=== PATIENT | male | born 1935 | race Caucasian/White ===

== ENCOUNTER 2020-03-30 11:53 | Inpatient (IN) | payer OTHER ==
[~2020-03-30] VITALS: Ht 170.2 cm; Wt 77.1 kg
[2020-03-30 12:35] LABS: BASOPHILS % (AUTO) 0.4 % (0.0-2.0); HEMATOCRIT 39 % (39-51); HEMOGLOBIN 13.6 g/dL (13.5-17.5); LYMPHOCYTES # (AUTO) 0.6 /CMM (0.8-4.8); LYMPHOCYTES % (AUTO) 10.7 % (20.0-44.0); MEAN CORPUSCULAR HGB CONC 35 g/dl (31.0-36.0); MEAN CORPUSCULAR VOLUME 92 fL (80-96); MONOCYTES # (AUTO) 0.2 /CMM (0.1-1.30); NEUTROPHILS % (AUTO) 84.9 % (43.0-81.0); PLATELET COUNT (AUTO) 211 /CMM (150-450); RED BLOOD CELL COUNT(AUTO) 4.22 MIL/uL (4.5-6.0); WHITE BLOOD COUNT (AUTO) 5.9 K/uL (4.3-11.0)
--- NOTE | 2020-03-30 12:35 | NUR ---
DEANNA FROM HOME TO ER BED 6. AWAKE AND ALERT, ABLE TO FOLLOW COMMAND. NOT IN RESP DISTRESS BUT SATTING AT 89% DESPITE HAVING HIM ON @ 10LPM VIA SIMPLE FACE MASK. BROUGHT IN FOR FEVER. ORAL TEMP NOTED @ 98.6. PT IS PALCED ON NON REBREATHER MASK @ 15LPM, SATTING AT 97%. MD WAS AT THE BEDSIDE FOR EVAL. ORDERS RECEIVED, NOTED AND CARRIED OUT. IV LINE ESTABLISHED ON L AC 18G, BLOOD DRAWN AND GIVEN TO TUBE AND MANIFOLD BUILDER AT BEDSIDE.
--- NOTE | 2020-03-30 12:41 | NUR ---
xray at bedside
[2020-03-30] MEDS ORDERED: DEXAMETHASONE SOD PHOSPHATE 10 MG/ML VIAL ONE (12:46)
[2020-03-30] MEDS ORDERED: DEXAMETHASONE SOD PHOSPHATE 10 MG/ML VIAL IV ONE (13:00)
[2020-03-30 13:01] LABS: ALANINE AMINOTRANSFERASE 58 U/L (12-78); ALBUMIN 2.6 g/dL (3.4-5.0); ALKALINE PHOSPHATASE 55 U/L (46-116); ASPARTATE AMINOTRANSFERASE 88 U/L (15-37); BILIRUBIN,DIRECT 0.3 mg/dL (0.0-0.2); BILIRUBIN,TOTAL 0.7 mg/dL (0.2-1.0); CALCIUM, SERUM 8.6 mg/dL (8.5-10.1); CARBON DIOXIDE 27 mmol/L (21-32); CHLORIDE 99 mmol/L (98-107); CREATININE 1.2 mg/dL (0.6-1.3); GLUCOSE 172 mg/dL (74-106); POTASSIUM 4.1 mmol/L (3.5-5.1); SODIUM SERUM 136 mmol/L (136-145); TOTAL PROTEIN, SERUM 7.2 g/dL (6.4-8.2)
[2020-03-30 13:07] LABS: UREA NITROGEN, BLOOD 26 mg/dL (7-18)
--- NOTE | 2020-03-30 13:15 | NUR ---
MOVE SHEET SUBMITTED AND CALLED FOR TELE
[2020-03-30] MEDS ORDERED: METF-442 PO (14:19)
[2020-03-30] MEDS ORDERED: TAMS-12 PO (14:19)
[2020-03-30] MEDS ORDERED: GLIP2.5T16 PO (14:19)
--- NOTE | 2020-03-30 14:19 | NUR ---
[facility] [employer] [facility] [employer] - [phone]
--- NOTE | 2020-03-30 14:20 | NUR ---
DAUGHTER UPDATED REGARDING FATHER.
[2020-03-30] MEDS ORDERED: ONDANSETRON HCL/PF 4 MG/2 ML VIAL IVP PRN (14:30)
[2020-03-30] MEDS ORDERED: MAG HYDROX/AL HYDROX/SIMETH 30 ML UDC PO PRN (14:30)
[2020-03-30] MEDS ORDERED: AZITHROMYCIN 500 MG in IV D5W 250 ML IV SCH (14:30)
[2020-03-30] MEDS ORDERED: Z GUARD REMEDY 2 OZ OINT TP PRN (14:30)
[2020-03-30] MEDS ORDERED: MAGNESIUM HYDROXIDE 30 ML UDC PO PRN (14:30)
--- NOTE | 2020-03-30 14:33 | NUR ---
PHARMACY CALLED FOR INPATIENT MEDS
[2020-03-30] MEDS ORDERED: ASCO-352 PO (15:21)
[2020-03-30] MEDS ORDERED: ALBU8.5H8 IH (15:21)
[2020-03-30] MEDS ORDERED: PROC10TA13 PO (15:21)
[2020-03-30] MEDS ORDERED: TRAM50TA2 PO (15:21)
[2020-03-30] MEDS ORDERED: IBUP-2715 PO (15:21)
[2020-03-30] MEDS ORDERED: DICL100G16 TP (15:21)
[2020-03-30] MEDS ORDERED: MAGN500C16 PO (15:21)
[2020-03-30] MEDS ORDERED: AMLO2.5T4 PO (15:21)
[2020-03-30] MEDS ORDERED: ACET-868 PO (15:21)
[2020-03-30] MEDS ORDERED: ZINC50TA65 PO (15:21)
[2020-03-30] MEDS ORDERED: ESCI5TAB PO (15:21)
[2020-03-30] MEDS ORDERED: POLY15DR40 EACHEYE (15:21)
[2020-03-30] MEDS ORDERED: HYDR-4384 PO (15:21)
[2020-03-30] MEDS ORDERED: CHOL100040 PO (15:21)
[2020-03-30] MEDS ORDERED: DOCU-141 PO (15:21)
[2020-03-30] MEDS: CEFTRIAXONE 1 G in IV D5W 50 ML IV SCH (17:30)
[2020-03-30] MEDS ORDERED: REMDESIVIR (CHARGED) 200 MG, *LOADING DOSE 1 EA in IV NS 0.9% 210 ML IV ONE (18:00)
[2020-03-30] MEDS: ZITHROMAX 500 MG/250 ML D5W IV SCH ×2 (18:00)
[2020-03-30] MEDS: ENOXAPARIN SODIUM 40 MG/0.4 ML DISP.SYRIN SQ SCH (20:01)
--- NOTE | 2020-03-30 21:08 | NUR ---
LAB CALLED REGARDING INVESTIGATIVE PAPERWORK FOR CONVALESCENT PLASMA TRANSFUSION.
--- NOTE | 2020-03-30 22:23 | NUR ---
PT IN BED SLEEPING. NAD NOTED.
--- NOTE | 2020-03-30 22:34 | NUR ---
PT ENDORSED TO GENE PEREZ
--- NOTE | 2020-03-30 23:40 | NUR ---
TRANSFUSION CONSENT FOR CONVALESCENT PLASMA WAS OBTAINED FROM THE DAUGHTER SENIA OVER THE PHONE AND PT PERSONALLY WHO SIGNED THE CONSENT.
--- NOTE | 2020-03-31 00:10 | NUR ---
CONVALESCENT PLASMA TRANSFUSION STARTED W/ TWO RNs VERIFICATIONS. PT REMAINED ON A MONITOR, W/ ONGOING SUPPLEMENTAL O2 AT 10LPM VIA SYMPLE MASK. WILL CONT TO MONITOR ,
--- NOTE | 2020-03-31 00:39 | NUR ---
PLASMA TRANSUSION COMPLETED W. NO ADVERSE REACTION. PT W/ NO C/O SOB, NO CP, NO FLANK PAIN . VSS. WILL CONT TO MONITOR ,
[2020-03-31 04:34] LABS: BASOPHILS % (AUTO) 0.2 % (0.0-2.0); HEMATOCRIT 40 % (39-51); HEMOGLOBIN 13.4 g/dL (13.5-17.5); LYMPHOCYTES # (AUTO) 0.5 /CMM (0.8-4.8); LYMPHOCYTES % (AUTO) 10.5 % (20.0-44.0); MEAN CORPUSCULAR HGB CONC 34 g/dl (31.0-36.0); MEAN CORPUSCULAR VOLUME 94 fL (80-96); MONOCYTES # (AUTO) 0.3 /CMM (0.1-1.30); MONOCYTES % (AUTO) 6.7 % (2.0-12.0); NEUTROPHILS # (AUTO) 4.1 /CMM (1.8-8.9); NEUTROPHILS % (AUTO) 82.6 % (43.0-81.0); PLATELET COUNT (AUTO) 242 /CMM (150-450); RED BLOOD CELL COUNT(AUTO) 4.23 MIL/uL (4.5-6.0)
[2020-03-31 05:05] LABS: CALCIUM, SERUM 9.1 mg/dL (8.5-10.1); CREATININE 1.1 mg/dL (0.6-1.3); POTASSIUM 4.2 mmol/L (3.5-5.1)
[2020-03-31 05:11] LABS: ALBUMIN 2.5 g/dL (3.4-5.0); BILIRUBIN,TOTAL 0.6 mg/dL (0.2-1.0); MAGNESIUM 2.3 mg/dL (1.8-2.4); PHOSPHORUS 3.2 mg/dL (2.5-4.9); TOTAL PROTEIN, SERUM 7.2 g/dL (6.4-8.2)
--- NOTE | 2020-03-31 05:28 | NUR ---
PT APEARED SORT OF BREATH AND ALSO REQUESTING TO WALK TO THE BATHROOM. PT CURRERNTLY ON 10L OD O2 VIA SIMPLE MASK. PT WAS PLACED ON A NON REBREATHER MASK AT 15LPM. WAS ASSISTED W/ A URINAL AND ASKED PT TO LAY ON HIS SIDE. REMAINED WITH THE PT WHILE ON A MONITOR.
--- NOTE | 2020-03-31 05:56 | NUR ---
RESTING IN BED . BREATHING EVENLY. NO SOB NOTED. PT TOLERATED NON REBREATHER MASK WITH 15LPM OF O2 WELL. SATTING 99%. WILL CONT TO MONITOR ,
--- NOTE | 2020-03-31 08:01 | NUR ---
assume patient care. resting in bed. all needs attended. provided w/ meal tray.
[2020-03-31] MEDS ORDERED: DEXAMETHASONE SOD PHOSPHATE 10 MG/ML VIAL IJ SCH (09:00)
--- NOTE | 2020-03-31 10:05 | NUR ---
PT NOTED LOW O2 SAT. O2 NON REBREATHER TRAKEN OFF BY PATIENT. WAS ADVISED TO KEEP NON REBREATHER MASK ON. STABLE VITALS.
[2020-03-31] MEDS: DEXAMETHASONE SOD PHOSPHATE 10 MG/ML VIAL IV SCH (10:30)
[2020-03-31] MEDS: CEFTRIAXONE 1 G in IV D5W 50 ML IV SCH (16:34)
[2020-03-31] MEDS: ZITHROMAX 500 MG/250 ML D5W IV SCH ×2 (17:10)
--- NOTE | 2020-03-31 18:02 | NUR ---
T PULLED OUT IV. NEW ONE STARTED. LFA 18G.
[2020-03-31] MEDS: REMDESIVIR (CHARGED) 100 MG in IV NS 0.9% 230 ML IV SCH (18:10)
--- NOTE | 2020-03-31 18:50 | NUR ---
Eladia baca in EDM - 03/31/20 at 1901 by INES PT PULLED OUT IV. NEW ONE STARTED. LFA 18G.
[2020-03-31] MEDS: ENOXAPARIN SODIUM 40 MG/0.4 ML DISP.SYRIN SQ SCH (19:12)
--- NOTE | 2020-03-31 19:30 | NUR ---
rec'd pt in bed awake and alert. on ongoing o2 at 15 lpm via non rebreather mask. satting at 90-93% . no s/s of pain or discomfort noted. pt remained on heart monitor,
--- NOTE | 2020-03-31 19:34 | NUR ---
REPORT GIVEN TO CHRIS MILLS FOR EDWIN.
--- NOTE | 2020-04-01 | NUR ---
pt noted w/ low o2 sat. pt ws advised to keep the mask in place and remained on ongoing monitor
[2020-04-01 05:27] LABS: ALBUMIN 2.7 g/dL (3.4-5.0); BILIRUBIN,DIRECT 0.3 mg/dL (0.0-0.2); BILIRUBIN,TOTAL 0.7 mg/dL (0.2-1.0); CREATININE 1.1 mg/dL (0.6-1.3); POTASSIUM 4.1 mmol/L (3.5-5.1); TOTAL PROTEIN, SERUM 7.7 g/dL (6.4-8.2)
[2020-04-01 08:10] LABS: PTH, INTACT 30 pg/mL (15-65)
[2020-04-01] MEDS ORDERED: HYDROCODONE/APAP 5/325MG TABLET ONE ×2 (08:10→15:16)
[2020-04-01] MEDS: HYDROCODONE/APAP 5/325MG TABLET PO PRN ×2 (08:15→15:18)
[2020-04-01] MEDS: DEXAMETHASONE SOD PHOSPHATE 10 MG/ML VIAL IV SCH (08:21)
--- NOTE | 2020-04-01 08:30 | NUR ---
provided pt with bfast ate 70%
--- NOTE | 2020-04-01 09:17 | NUR ---
rt by bedside, placed pt on hu flow o2 60L/100% satting at 93%
--- NOTE | 2020-04-01 12:34 | NUR ---
provided pt with lunch ate 70%
[2020-04-01] MEDS: CEFTRIAXONE 1 G in IV D5W 50 ML IV SCH (15:03)
[2020-04-01] MEDS: ZITHROMAX 500 MG/250 ML D5W IV SCH ×2 (16:00)
[2020-04-01 16:07] LABS: *SPE A/G RATIO 0.7 (0.7-1.7); *SPE ALBUMIN 2.5 g/dL (2.9-4.4); *SPE ALPHA-1-GLOBULIN 0.5 g/dL (0.0-0.4); *SPE ALPHA-2-GLOBULIN 1.2 g/dL (0.4-1.0); *SPE BETA GLOBULIN 1.1 g/dL (0.7-1.3); *SPE GLOBULIN, TOTAL 3.6 g/dL (2.2-3.9); *SPE M-SPIKE Not Observed g/dL (Not Observed); *SPEGAMMA GLOBULIN 0.8 g/dL (0.4-1.8)
--- NOTE | 2020-04-01 18:10 | NUR ---
CALLED PHARMACY MULTIPLE TIMES FOR THE MEDICATIONS. STILL HAVEN'T DELIVERED.
[2020-04-01] MEDS: ENOXAPARIN SODIUM 40 MG/0.4 ML DISP.SYRIN SQ SCH (18:30)
[2020-04-01] MEDS: REMDESIVIR (CHARGED) 100 MG in IV NS 0.9% 230 ML IV SCH (18:30)
--- NOTE | 2020-04-01 19:30 | NUR ---
REC'D PT IN BED AWAKE , STASNDING AT BED SIDE. HAS REMOVED HIS SUPPLEMENTAL O2 . SATTING ON 70s. PT WAS ASSISTED BACK IN BED AND PLACED PT BACK ON HIGH FLOW O2 AND NON REBREATHER MASK. PT WAS ADVISED TO STAY IN BED AND KEEP THE O2 SUPLEMNTS DEVISES IN PLACE. PT WAS PLACED BACK ON FULL MONITOR. AND STAYED WITH PT. O2 SATURATION GRADULLY INCREASED TO 90s. WILL CONT TO MONITOR.
--- NOTE | 2020-04-01 20:30 | NUR ---
FOUND PT SATTING ON 76% ON MONTIOR, CHECKED ON PT. NOTED PT REMOVED HIS MASK AND HIGH FLOW O2. PT WAS ADVISED TO KEEP THE SUPPLEMENTAL O2 IN PLACE. WILL CONT TO MONITOR ,
--- NOTE | 2020-04-01 23:24 | NUR ---
found pt w/ laying in bed and removed his o2 supplements. pt was placed back on hi flow o2 and non rebreather mask and asked pt to please keep them in place to prevent desaturation. stayed with the pt to ensure o2 saturation wnl.
--- NOTE | 2020-04-02 01:20 | NUR ---
PT IS REFUSING HIGH FLOW O2 AND NON REBREATHER MASK . SPOKE TO THE PT AND RISK VS THE BENEFITS EXPLAINED TO THE PT AND CONVINCED PT TO HAVE THE NON REBREATHER MASK IN PLACE. PT REMAINED ON CLOSE MONITOR,
[2020-04-02 04:34] LABS: BASOPHILS % (AUTO) 0.4 % (0.0-2.0); HEMATOCRIT 40 % (39-51); HEMOGLOBIN 13.5 g/dL (13.5-17.5); LYMPHOCYTES # (AUTO) 0.6 /CMM (0.8-4.8); LYMPHOCYTES % (AUTO) 6.7 % (20.0-44.0); MEAN CORPUSCULAR HGB CONC 34 g/dl (31.0-36.0); MEAN CORPUSCULAR VOLUME 94 fL (80-96); MONOCYTES # (AUTO) 0.4 /CMM (0.1-1.30); MONOCYTES % (AUTO) 4.7 % (2.0-12.0); NEUTROPHILS # (AUTO) 8.3 /CMM (1.8-8.9); NEUTROPHILS % (AUTO) 88.2 % (43.0-81.0); PLATELET COUNT (AUTO) 295 /CMM (150-450); RED BLOOD CELL COUNT(AUTO) 4.25 MIL/uL (4.5-6.0); WHITE BLOOD COUNT (AUTO) 9.5 K/uL (4.3-11.0)
[2020-04-02 04:49] LABS: ALBUMIN 2.6 g/dL (3.4-5.0); BILIRUBIN,DIRECT 0.3 mg/dL (0.0-0.2); BILIRUBIN,TOTAL 0.8 mg/dL (0.2-1.0); CALCIUM, SERUM 9.2 mg/dL (8.5-10.1); CREATININE 1.2 mg/dL (0.6-1.3); MAGNESIUM 2.3 mg/dL (1.8-2.4); PHOSPHORUS 3.6 mg/dL (2.5-4.9); POTASSIUM 4.6 mmol/L (3.5-5.1); TOTAL PROTEIN, SERUM 7.2 g/dL (6.4-8.2)
[2020-04-02] MEDS: ENOXAPARIN SODIUM 40 MG/0.4 ML DISP.SYRIN SQ SCH ×2 (06:18→18:22)
[2020-04-02] MEDS ORDERED: ENOXAPARIN SODIUM 40 MG/0.4 ML DISP.SYRIN SQ ONE (06:18)
[2020-04-02] MEDS: DEXAMETHASONE SOD PHOSPHATE 10 MG/ML VIAL IV SCH (10:00)
[2020-04-02] MEDS: CEFTRIAXONE 1 G in IV D5W 50 ML IV SCH (16:43)
--- NOTE | 2020-04-02 16:59 | NUR ---
GOING TO 201
[2020-04-02] MEDS: ZITHROMAX 500 MG/250 ML D5W IV SCH ×2 (17:12)
--- NOTE | 2020-04-02 17:56 | NUR ---
PT TRANSPORTED TO UNIT ON [facility] WITH EMT AND RN AT BEDSIDE WITH ACLS PROTOCOL. NAD NOTED DURING TRANSPORT. PT AMBULATED FROM GURNEY TO BED WITH MIN ASSIST.
--- NOTE | 2020-04-02 18:00 | NUR ---
FACILITY COORDINATOR NOTES RECEIVED PT FROM E.R. STAFF VIA JAMESON, PT IS AWAKE, ALERT, VERBALLY RESPONSIVE, NO COMPLAINT OF PAIN, NO SOB NOTED, ASSISTED TO BED, MADE COMFORTABLE, ON HIGH FLOW 02 VIA N/C, INSTRUCTED PT NOT TO REMOVE HIS NASAL CANULA, VITAL SIGNS TAKEN AND RECORDED, KEPT WARM AND COMFORTABLE IN BED.
[2020-04-02 18:11] VITALS: BP 150/110
[2020-04-02] MEDS: REMDESIVIR (CHARGED) 100 MG in IV NS 0.9% 230 ML IV SCH (18:29)
--- NOTE | 2020-04-02 19:35 | NUR ---
SHEET METAL SUPERINTENDENT NOTES RECEIVED REPORT FROM GENE SALDANA; PATIENT NOTED ON NON-REBREATHER MASK AND HIGHFLOW; WILL CONT PLAN OF CARE
[2020-04-02 20:00] VITALS: BP 112/69
--- NOTE | 2020-04-02 20:02 | NUR ---
IRON BENDER NOTES PATIENT REMOVING IV TUBING AND HIGH FLOW/NON-REBREATHER CONSTANTLY; PATIENT RE-ORIENTED SEVERAL TIMES THROUGHOUT DAY PER DAY SHIFT; PATIENT FOUND IN ROOM WITH NO O2 SUPPLEMENTATION, PATIENT REMOVING TUBING; MADE DISABILITY COUNSELOR RAF CALVILLO, FILM PRODUCER AWARE; PER , GAUTAM FOR RESTRAINTS; WILL APPLY RESTRAINTS PER MD ORDER; WILL CONT PLAN OF CARE
[2020-04-02] MEDS ORDERED: LORAZEPAM INJ 2 MG/ML VIAL IV PRN (22:30)
[2020-04-03] VITALS (12 sets, daily range): BP systolic 106–183; BP diastolic 67–107
--- NOTE | 2020-04-03 | NUR ---
PATTERN PAINTER NOTES IV ACCESS OBTAINED, R WRIST #20, INTACT AND PATENT, FLUSHING WELL.
--- NOTE | 2020-04-03 01:37 | NUR ---
CARDIOVASCULAR SURGEON NOTES PER RT, PATIENT REPORTED TO BE SATTING 84-89% WITH O2 SUPPLEMENTATION WHILE LAYING SUPINE; PATIENT SATTING 90S WHEN SIDE LYING, PER RT; MD AWARE; WILL CONT PLAN OF CARE
--- NOTE | 2020-04-03 02:12 | NUR ---
FARM BUTCHER NOTES PATIENT VERY AGITATED; PATIENT STILL ABLE TO REMOVE TELE BOX; MD AWARE; WILL CONT PLAN OF CARE
[2020-04-03] MEDS: ENOXAPARIN SODIUM 40 MG/0.4 ML DISP.SYRIN SQ SCH ×2 (05:03→17:28)
--- NOTE | 2020-04-03 05:16 | NUR ---
DOLLY PUSHER NOTES PATIENT VERY AGITATED/ANXIOUS AND RESTLESS; MD MADE AWARE; PER MD, OKAY TO CHANGE ATIVAN ORDER FROM Q6 HOURS PRN TO [id number] PRN; ORDERS RECEIVED AND READ BACK; WILL ADMINISTER PER MD ORDER; WILL CONT PLAN OF CARE
[2020-04-03] MEDS: LORAZEPAM INJ 2 MG/ML VIAL IV PRN ×3 (05:26→19:50)
[2020-04-03 06:12] LABS: BASOPHILS % (AUTO) 0.1 % (0.0-2.0); HEMATOCRIT 44 % (39-51); HEMOGLOBIN 14.8 g/dL (13.5-17.5); LYMPHOCYTES # (AUTO) 0.9 /CMM (0.8-4.8); LYMPHOCYTES % (AUTO) 5.5 % (20.0-44.0); MEAN CORPUSCULAR HGB CONC 34 g/dl (31.0-36.0); MEAN CORPUSCULAR VOLUME 93 fL (80-96); MONOCYTES # (AUTO) 0.7 /CMM (0.1-1.30); NEUTROPHILS # (AUTO) 15.5 /CMM (1.8-8.9); NEUTROPHILS % (AUTO) 90.4 % (43.0-81.0); PLATELET COUNT (AUTO) 317 /CMM (150-450); RED BLOOD CELL COUNT(AUTO) 4.73 MIL/uL (4.5-6.0); WHITE BLOOD COUNT (AUTO) 17.1 K/uL (4.3-11.0)
[2020-04-03 06:29] LABS: ALANINE AMINOTRANSFERASE 65 U/L (12-78); ALBUMIN 2.9 g/dL (3.4-5.0); ALKALINE PHOSPHATASE 91 U/L (46-116); ASPARTATE AMINOTRANSFERASE 50 U/L (15-37); BILIRUBIN,DIRECT 0.4 mg/dL (0.0-0.2); BILIRUBIN,TOTAL 0.9 mg/dL (0.2-1.0); CALCIUM, SERUM 9.4 mg/dL (8.5-10.1); CARBON DIOXIDE 21 mmol/L (21-32); CHLORIDE 102 mmol/L (98-107); CREATININE 1.3 mg/dL (0.6-1.3); GLUCOSE 276 mg/dL (74-106); POTASSIUM 4.5 mmol/L (3.5-5.1); SODIUM SERUM 139 mmol/L (136-145); TOTAL PROTEIN, SERUM 7.7 g/dL (6.4-8.2); UREA NITROGEN, BLOOD 39 mg/dL (7-18)
--- NOTE | 2020-04-03 07:17 | NUR ---
NURSING SCHEDULER CLOSING NOTES PATIENT RESTING IN BED COMFORTABLY; A/OX1-2, CONFUSED AND AGITATED/ANXIOUS; PATIENT CURRENTLY TOLERATING HIGHFLOW 60LPM AND NON-REBREATHER, ON 100% FIO2; NO SOB NOTED; PATIENT DENIES PAIN; BILATERAL SOFT WRIST RESTRAINT APPLIED; NO EVIDENCE OF SKIN BREAKDOWN NOTED; TELE MONITOR READS SINUS RHYTHM; R WRIST #20 S/L INTACT AND PATENT; PATIENT SOMETIMES NON-COMPLIANT; MD AWARE; ISOLATION PRECAUTIONS MANTAINED; ALL NEEDS RENDERED; SAFETY PRECAUTIONS IMPLEMENTED; WILL ENDORSE EDWIN TO ONCOMING SHIFT
[2020-04-03 07:39] LABS: FERRITIN 2830 ng/mL (8-388)
--- NOTE | 2020-04-03 07:45 | NUR ---
TELE/RN OPENING NOTE THE PATIENT IS RECEIVED IN BED. THE PATIENT IS ALERT AND ORIENTED X1. ABLE TO FOLLOW SIMPLE COMMANDS. BILATERAL SOFT WRIST RESTRAINS ON. PATIENT ON HIGH FLOW 60LPM, FIO2 AT 100%. PATIENT NOTED WITH LABORED BREATHING AND EPISODES OF BEING RESTLESS. RIGHT WRIST G 20 PATENT AND SALINE LOCKED. EXTERNAL TELE BOX READING IS SINUS TACHYCARDIA 109. BED LOW AND LOCKED. SIDE RAILS UP X3. CALL LIGHT WITHIN REACH. WILL CONTINUE TO MONITOR.
[2020-04-03] MEDS: DEXAMETHASONE SOD PHOSPHATE 10 MG/ML VIAL IV SCH (08:55)
--- NOTE | 2020-04-03 09:21 | NUR ---
TELE/RN NEW ORDER FROM DR BARTLETT RECEIVED AN ORDER OF ROUTINE ABG FROM DR BARTLETT. THE ORDER READ BACK, VERIFIED. NOTED AND CARRIED OUT.
[2020-04-03 10:02] LABS: ABG BASE EXCESS -1.3 mmol/L; ABG OXYGEN SATURATION 76.1 % (92.0-98.5); ABG PO2 41.8 mmHg (75.0-100.0); AaDO2 639.2 mmHg; COHb 0.8 % (0.5-1.5); MetHb 0.2 % (0.0-1.5); O2Hb 75.3 % (94.0-97.0); SITE, ABG Right Radial; VENT MODE, BG HiFlow 60L 100% + NRB
--- NOTE | 2020-04-03 11:01 | NUR ---
RN DR GUZMAN AWARE OF ABG RESULT DR GUZMAN IS MADE AWARE OF ABG RESULT AND HE ORDERED ANOTHER ABG TO BE DONE AT 1230. THE ORDER READ BACK, VERIFIED. NOTED AND CARRIED OUT.
--- NOTE | 2020-04-03 12:35 | NUR ---
TELE/RN DR BARTLETT AWARE OF ABG RESULT DR BARTLETT IS MADE AWARE OF ABG RESULT AND PER MD HE WILL ARRANGE FOR THE PATIENT TO GET TRANSFERRED TO ICU. PER DR BARTLETT AND ICU CHARGE NURSE THERE ARE NO ICU BED AVAILABLE AT THIS TIME, SO WE NEED TO WAIT FOR SOME ARRANGEMENTS.
[2020-04-03 12:51] LABS: ABG BASE EXCESS -1.8 mmol/L; ABG OXYGEN SATURATION 97.2 % (92.0-98.5); ABG PCO2 27.2 mmHg (35.0-45.0); ABG PH 7.486 (7.350-7.450); ABG PO2 93.2 mmHg (75.0-100.0); AaDO2 592.6 mmHg; COHb 0.7 % (0.5-1.5); MetHb 0.1 % (0.0-1.5); O2Hb 96.4 % (94.0-97.0); SITE, ABG Right Radial; VENT MODE, BG HFNC 60L 100%
--- NOTE | 2020-04-03 14:06 | NUR ---
TELE/RN NOTE RECEIVED BED NUMBER (108) TO TRANSFER THE PATIENT, HOWEVER, THE RECIVING NURSE CHARANJIT IS ON LUNCH AT THIS TIME AND CHARGE NURSE IS BUSY TO GET REPORT/PATIENT. PER CHARGE NURSE "WAIT UNTIL CHARANJIT COMES BACK FROM LUNCH". WILL CONTINUE TO MONITOR THE PATIENT AND TRANSFER TO [facility] SOON THE NURSE IS BACK FROM LUNCH.
--- NOTE | 2020-04-03 15:30 | NUR ---
TELE/VOCATIONAL NURSING INSTRUCTOR TO [facility] THE PATIENT ALERT AND ORIENTED X1. ABLE TO FOLLOW SIMPLE COMMANDS. DENIES PAIN. PATIENT IS ON HIGH FLOW 60LPM FIO2 100% AND OXYGEN SATURATION IS AT 95%. PATIENT NOTED WITH LABORED BREATHING AND DR BARTLETT IS AWARE. TELE BOX READING IS SINUS TACHYCARDIA 103. BILATERAL SOFT WRIST RESTRAINS ON PER ORDER AND NO SKIN BREAKDOWN OR S/S POOR CIRCULATION ON EXTREMITIES NOTED.RIGHT WRIST G 20 AND RIGHT FOREARM G 18 BOTH PATENT AND SALINE LOCKED. TRANSFERRED THE PATIENT [facility]. REPORT GIVEN TO RN CHARANJIT.
--- NOTE | 2020-04-03 15:38 | NUR ---
PT TRANSPORTED TO [facility] ROOM 108 AT THIS TIME WITH ACLS PROTOCOLS IN PLACE. NO C/O PAIN AT THIS TIME. PT APPEARS RESTLESS. BEDSIDE REPORT RECEIVED FROM KINDRA. PT ON NPO STATUS, ASPIRATION AND SAFETY PRECAUTION IN PLACE AND MAINTAINED AT ALL TIMES. BED IN LOWEST LOCKED POSITION, HOB ELEVATED, SIDE RAILS UP X 2, CALL LIGHT AND TABLE WITHIN REACH. WILL CONTINUE TO MONITOR
--- NOTE | 2020-04-03 15:40 | NUR ---
PT NOTED ON BILATERAL SOFT WRIST RESTRAINS, PULSES PRESENT BILATERALLY, CAPILLARY REFILL<3SECONDS, GOOD CIRCULATION NOTED. PT ON NPO STATUS. IV ACCESS NOTED IN RIGHT WRIST G#20 AND RIGHT HAND G#18 BOT INTACT, PATENT AND FLUSHING WELL.
[2020-04-03] MEDS: CEFTRIAXONE 1 G in IV D5W 50 ML IV SCH (15:59)
--- NOTE | 2020-04-03 16:11 | NUR ---
PT IS AGITATED, ANXIOUS AND RESTLESS, VS WNL. ATIVAN 1MG IV Q4H PRN FOR ANXIETY/AGITATION ADMINISTERED AT THIS TIME PER ORDER. WILL CONTINUE TO MONITOR
--- NOTE | 2020-04-03 16:16 | NUR ---
PT ON HIGH FLOW OXYGEN @ 60LPM WITH NON REBREATHER MASK, SATURATING AT 94% WILL CONTINUE TO MONITOR
[2020-04-03] MEDS: ZITHROMAX 500 MG/250 ML D5W IV SCH ×2 (16:36)
--- NOTE | 2020-04-03 17:47 | NUR ---
PT HR 128 ST, DOCTOR LINDSAY, ALEXX MADE AWARE. AWAITING ORDERS, WILL CONTINUE TO MONITOR
[2020-04-03] MEDS: REMDESIVIR (CHARGED) 100 MG in IV NS 0.9% 230 ML IV SCH (18:49)
--- NOTE | 2020-04-03 19:06 | NUR ---
FLOWER POT PRESS OPERATOR CLOSING NOTES PT AWAKE IN BED AT THIS TIME. PT REMAINED STABLE THROUGHOUT SHIFT. ALL CARE, NEED, MEDICATIONS AND TREATMENT ADMINISTERED ANTICIPATED PER ORDER. WOUND TREATMENT PROVIDED. PT KEPT CLEAN AND DRY. RESTRAINTS ASSESSED Q2HR AND PRN. SKIN UNDERNEATH RESTRAINTS INTACT, PULSES ARE PRESENT BILATERALLY, CAPILLARY REFILL < 3SECONDS, GOOD CIRCULATION NOTED. ASPIRATION AND SAFETY PRECAUTION IN PLACE AND MAINTAINED AT ALL TIMES. BED IN LOWEST LOCKED POSITION, HOB ELEVATED, SIDE RAILS UP X 2, CALL LIGHT AND TABLE WITHIN REACH. WILL ENDORSE TO MATERIAL DAMAGE ADJUSTER NURSE FOR EDWIN
--- NOTE | 2020-04-03 20:00 | NUR ---
DYED RAW STOCK BLOWER FEEDER OPENING NOTES PT IN BED AWAKE ON BILATERAL WRIST RESTRAINTS, PULSES ARE PRESENT BILATERALLY, CAPILLARY REFILL <3SECONDS. PT IS RESTLESS AGITATED LETHARGIC. WITHDRAWS FROM TOUCH AND PAIN. PT ON 15 LITER NON REBREATHER WELL HFNC 40 LITERS AT 100%FIO2 SPO2 94% ASPIRATION AND SAFETY PRECAUTION IN PLACE AND MAINTAINED AT ALL TIMES. BED IN LOWEST LOCKED POSITION, HOB ELEVATED, SIDE RAILS UP X 3 CALL LIGHT AND TABLE WITHIN REACH. PT PLACED ON BEDSIDE COMPUTER AIDED DRAFTER AND ON REMOTE COMPUTER AIDED DRAFTER CRRENTLY PT IS ST. WILL CONTINUE TO MONITOR PER ICU OVERFLOW GUIDELINES.
[2020-04-04] VITALS (23 sets, daily range): BP systolic 115–192; BP diastolic 62–107
--- NOTE | 2020-04-04 00:24 | NUR ---
CONTACTED [facility] RISK ADJUSTMENT SPECIALIST ICE CREAM FREEZER HELPER REGARDING PT NPO STATUS; HX OF DM; NEW ORDER FOR IVF RECIEVED AND TO START MILD SLIDING SCALE
[2020-04-04] MEDS ORDERED: DEXTROSE 50%-WATER 50 ML DISP.SYRIN IV PRN ×2 (00:30→16:00)
--- NOTE | 2020-04-04 00:48 | NUR ---
bs 351 clarified order. [facility] ordered to hold insulin and recheck in am.
[2020-04-04] MEDS: INSULIN REGULAR, HUMAN 100 UNIT/ML 3 ML VIAL SQ PRN ×4 (00:49→19:04)
[2020-04-04] MEDS: IV NS 0.9% 1,000 ML IV PRN (00:49)
[2020-04-04] MEDS: LORAZEPAM INJ 2 MG/ML VIAL IV PRN ×3 (00:50→09:30)
[2020-04-04] MEDS: ACETAMINOPHEN 650 MG/SUPP.RECT RC PRN ×2 (00:50→05:31)
[2020-04-04] MEDS: ENOXAPARIN SODIUM 40 MG/0.4 ML DISP.SYRIN SQ SCH ×2 (05:41→19:02)
[2020-04-04] MEDS: BLOOD SUGAR DIAGNOSTIC 1 EACH STRIP IN SCH ×3 (05:56→19:05)
--- NOTE | 2020-04-04 06:07 | NUR ---
DISTRIBUTOR CLEANER CLOSING NOTES NOTES PT IN BED AWAKE ON BILATERAL WRIST RESTRAINTS, PULSES ARE PRESENT BILATERALLY, CAPILLARY REFILL <3SECONDS. PT IS RESTLESS AGITATED LETHARGIC. WITHDRAWS FROM TOUCH AND PAIN PERIODICALLY PULLING ON RESTRAINTS. PT ON 15 LITER NON REBREATHER WELL HFNC 40 LITERS AT 100%FIO2 SPO2 91% ASPIRATION AND SAFETY PRECAUTION IN PLACE AND MAINTAINED AT ALL TIMES. BED IN LOWEST LOCKED POSITION, HOB ELEVATED, SIDE RAILS UP X 3 CALL LIGHT AND TABLE WITHIN REACH. IVF INFUSING TO RIGHT FA #18 WITH NO S/S OF INFILTRATION. PT ON BEDSIDE MEDICAL TRANSLATOR AND ON REMOTE MEDICAL TRANSLATOR CRRENTLY PT IS ST AT116. AM BLOOD SUGAR WAS 337 COVERAGE HELD SINCE PT IS NPO. WILL CONTINUE TO MONITOR AND ENDORSE TO ONCOMING SHIFT. .
[2020-04-04 06:46] LABS: BASOPHILS % (AUTO) 0.1 % (0.0-2.0); EOSINOPHILS % (AUTO) 0.1 % (0.0-6.0); HEMATOCRIT 43 % (39-51); HEMOGLOBIN 14.7 g/dL (13.5-17.5); LYMPHOCYTES # (AUTO) 0.7 /CMM (0.8-4.8); LYMPHOCYTES % (AUTO) 5.3 % (20.0-44.0); MEAN CORPUSCULAR HGB CONC 34 g/dl (31.0-36.0); MEAN CORPUSCULAR VOLUME 93 fL (80-96); MONOCYTES # (AUTO) 0.4 /CMM (0.1-1.30); MONOCYTES % (AUTO) 2.9 % (2.0-12.0); NEUTROPHILS # (AUTO) 12.1 /CMM (1.8-8.9); NEUTROPHILS % (AUTO) 91.6 % (43.0-81.0); PLATELET COUNT (AUTO) 245 /CMM (150-450); RED BLOOD CELL COUNT(AUTO) 4.65 MIL/uL (4.5-6.0); WHITE BLOOD COUNT (AUTO) 13.2 K/uL (4.3-11.0)
[2020-04-04 07:26] LABS: ALBUMIN 2.6 g/dL (3.4-5.0); BILIRUBIN,DIRECT 0.4 mg/dL (0.0-0.2); BILIRUBIN,TOTAL 0.9 mg/dL (0.2-1.0); CREATININE 1.2 mg/dL (0.6-1.3); MAGNESIUM 2.5 mg/dL (1.8-2.4); PHOSPHORUS 4.1 mg/dL (2.5-4.9); POTASSIUM 4.7 mmol/L (3.5-5.1); TOTAL PROTEIN, SERUM 7.2 g/dL (6.4-8.2)
--- NOTE | 2020-04-04 07:45 | NUR ---
RN OPENING NOTE THE PATIENT IS RECEIVED IN BED. PATIENT IS NOT ALERT OR ORIENTED BUT RESPONDS TO VERBAL STIMULI BY OPENING EYES. NO MANIFESTATION OF PAIN AT THIS TIME. PATIENT IS ON 60L/MIN WITH FIO2 AT 100% AND SATURATION IS AT 90%. PATIENT NOTED WITH EPISODES OF SOB. ALSO, THE PATIENT HAS EPISODES OF RESTLESSNESS AND IS ON BILATERAL SOFT WRIST RESTRAINS. ASSESSED AND BILATERAL PULSES PRESENT, SKIN INTACT. TELE BOX READING IS SINUS RHYTHM 126. BED LOW AND LOCKED. SIDE RAILS UP X2. CALL LIGHT WITHIN REACH. WILL CONTINUE TO MONITOR.
[2020-04-04 08:33] LABS: BILIRUBIN,URINE NEGATIVE (NEGATIVE); COLOR,URINE YELLOW (YELLOW); LEUKOCYTE ESTERASE ,URINE NEGATIVE (NEGATIVE); NITRITE, URINE NEGATIVE (NEGATIVE); PROTEIN,URINE 30 mg/dl (NEGATIVE); UGLUCOSE >=1000 mg/dL (NEGATIVE); UROBILINOGEN,URINE 0.2 EU/dL (0.2)
[2020-04-04 08:50] LABS: BACTERIA,URINE Few /HPF (None Seen); SQUAMOUS EPITHELIAL CELL,UR Rare /HPF (None Seen); WBC,URINE 0-2 /HPF (0-3); YEAST,URINE Moderate /HPF (None Seen)
[2020-04-04 09:09] LABS: CREATININE, URINE 70.3 MG/DL (30.0-125.0); URINE TOTAL PROTEIN 73.6 mg/dL (0-11.9)
[2020-04-04] MEDS: DEXAMETHASONE SOD PHOSPHATE 10 MG/ML VIAL IV SCH (09:36)
--- NOTE | 2020-04-04 09:45 | NUR ---
RN UPDATED RESPONSIBLE DEMOCRAT RECEIVED A CALL FROM DAUGHTER ALEXUS AND GAVE UPDATE ON A PATIENT TO THE DAUGHTER.
--- NOTE | 2020-04-04 09:58 | NUR ---
RN NOTE PER RT PETERSON ABG DONE AND DR BARTLETT MADE AWARE OF THE RESULT AND NO NEW ORDER PER MD. SPOKE WITH DR BARTLETT AND HE CONFIRMED THAT HE SAW THE ABG RESULT AND HE DOES NOT HAVE ANY NEW ORDERS.
--- NOTE | 2020-04-04 10:04 | NUR ---
RN NO PLASMA NEEDED ASKED DR BARTLETT IF THE PATIENT NEEDS SECOND CONVALESCENT PLASMA (ONE GIVEN 03/31 AT ER) AND PER DR BARTLETT NO NEED FOR ANOTHER CONVALESCENT PLASMA. WILL ENDORSE TO UPCOMING SHIFT NURSES.
[2020-04-04 11:50] LABS: EOSINOPHIL,URINE None Seen
--- NOTE | 2020-04-04 12:20 | NUR ---
RN NEW ORDER RISHABH MONTOYA IS MADE AWARE OF PATIENT BLOOD PRESSURE OF 196/87 AND RECEIVED AN ORDER OF APRESOLINE 10 MG Q6HR IV PRN. THE ORDER IS READ BACK, VERIFIED. NOTED AND CARRIED OUT.
[2020-04-04 12:37] LABS: ABG BASE EXCESS -2.5 mmol/L; ABG OXYGEN SATURATION 93.1 % (92.0-98.5); ABG PCO2 28.3 mmHg (35.0-45.0); ABG PH 7.463 (7.350-7.450); AaDO2 614.7 mmHg; COHb 0.4 % (0.5-1.5); MetHb 0.4 % (0.0-1.5); O2Hb 92.4 % (94.0-97.0); SITE, ABG Right Radial; VENT MODE, BG HIGH FLOW NC 60L/100%+NRB
[2020-04-04] MEDS: hydrALAZINE HCL IV 20 MG VIAL IV PRN (12:37)
--- NOTE | 2020-04-04 12:56 | NUR ---
ICU/RN OK TO GIVE SLIDING SCALE ROLL PLUGGER LINDSAY IS MADE AWARE OF BLOOD SUGAR OF 346 AND THAT THE PATIENT IS NPO WITH NS INFUSING AT 50 ML/HR. PER ROLL PLUGGER OK TO GIVEN SLIDING SCALE INSULIN. INSULIN GIVEN PATIENT`S BLOOD PRESSURE IS 154/80 AND PULSE 104 AFTER GIVING PRN APRESOLINE 10 MG IV PUSH. WILL CONTINUE TO MONITOR THE PATIENT.
[2020-04-04] MEDS: CEFTRIAXONE 1 G in IV D5W 50 ML IV SCH (16:07)
--- NOTE | 2020-04-04 16:25 | NUR ---
RN TRAINING INTERN LINDSAY IS MADE AWARE OF BP 158/104 AND THAT PATIENT HEART RATE ON TELE BOX SHOWED 170, AFTERWARD MAINTAINING AT 160. ASKED TRAINING INTERN FOR ORDERS AND SHE STATED THAT SHE WILL COME TO SEE THE PATIENT SOON.
--- NOTE | 2020-04-04 16:53 | NUR ---
RN NOTE MULTI SHARE PROGRAM COORDINATOR AT THE BEDSIDE AND ASSESSING THE PATIENT. REPORT GIVEN TO MULTI SHARE PROGRAM COORDINATOR. NO NEW ORDERS AT THIS TIME. WILL CONTINUE TO MONITOR THE PATIENT.
--- NOTE | 2020-04-04 19:25 | NUR ---
RN OPENING NOTE PATIENT CONFUSED AND NOT ALERT. PATIENT WITH EPSIODES OF BEING RESTLESS IN BED. SOFT BILATERAL WRIST RESTRAINTS PRESENT FOR PATIENT SAFETY; SKIN CIRCULATION WNL. PATIENT ON 60L/MIN HIGHFLOW AND NON-REBREATHER MASK; BREATHING IS LABORED WITH SOB; CONTINUOUS PULSE OX READING IS 92. TELE MONITOR READING SINUS TACH. SAFETY MEASURES IN PLACE AND PATIENT'S NEEDS MET. BED LOCKED, HOB ELEVATED, SIDE RAILS UP, WILL CONTINUE ENDORSE TO BOX COVERING MACHINE OPERATOR.
--- NOTE | 2020-04-04 19:47 | NUR ---
RN OPENING NOTE PATIENT CONFUSED, NONVERBAL, RESTLESS IN BED. SOFT BILATERAL WRIST RESTRAINTS PRESENT FOR PATIENT SAFETY; SKIN CIRCULATION WNL. PATIENT ON 60L/MIN HIGHFLOW AND NONREBREATHER MASK; BREATHING IS LABORED WITH SOB; CONTINUOUS PULSE OX READING 93%. TELE MONITOR READING SINUS TACH, HEART RATE 120. SAFETY MEASURES IN PLACE AND PATIENT'S NEEDS MET. BED LOCKED, HOB ELEVATED, SIDE RAILS UP, WILL CONTINUE TO MONITOR.
--- NOTE | 2020-04-04 23:52 | NUR ---
RN NOTE PATIENT'S BLOOD GLUCOSE 239. NOTIFIED OFFICE SPECIALIST GREY STOCK RECORDER, [employer]CD[employer]EL[facility], PATIENT IS NPO WITH NS RUNNING AT 50 ML/HR. PER LISBETH CARBONE TO GIVE REGULAR INSULIN PER SLIDING SCALE. WILL CONTINUE TO MONITOR.
[2020-04-05] VITALS (26 sets, daily range): BP systolic 1–179; BP diastolic 65–95
[2020-04-05] MEDS: BLOOD SUGAR DIAGNOSTIC 1 EACH STRIP IN SCH ×5 (00:09→23:58)
[2020-04-05] MEDS: hydrALAZINE HCL IV 20 MG VIAL IV PRN ×2 (00:14→08:17)
--- NOTE | 2020-04-05 00:14 | NUR ---
RN NOTE PATIENT'S BP: 179/95, HR: 78. ADMINISTERED PRN HYDRALAZINE 10MG IV. WILL CONTINUE TO MONITOR.
[2020-04-05] MEDS: INSULIN REGULAR, HUMAN 100 UNIT/ML 3 ML VIAL SQ PRN ×4 (00:16→17:04)
[2020-04-05 05:57] LABS: BASOPHILS % (AUTO) 0.1 % (0.0-2.0); EOSINOPHILS % (AUTO) 0.1 % (0.0-6.0); HEMATOCRIT 49 % (39-51); HEMOGLOBIN 15.8 g/dL (13.5-17.5); LYMPHOCYTES # (AUTO) 0.9 /CMM (0.8-4.8); LYMPHOCYTES % (AUTO) 4.8 % (20.0-44.0); MEAN CORPUSCULAR HGB CONC 33 g/dl (31.0-36.0); MEAN CORPUSCULAR VOLUME 95 fL (80-96); MONOCYTES # (AUTO) 0.6 /CMM (0.1-1.30); MONOCYTES % (AUTO) 3.3 % (2.0-12.0); NEUTROPHILS # (AUTO) 16.7 /CMM (1.8-8.9); NEUTROPHILS % (AUTO) 91.7 % (43.0-81.0); PLATELET COUNT (AUTO) 237 /CMM (150-450); RED BLOOD CELL COUNT(AUTO) 5.09 MIL/uL (4.5-6.0); WHITE BLOOD COUNT (AUTO) 18.2 K/uL (4.3-11.0)
[2020-04-05 06:12] LABS: CALCIUM, SERUM 9.2 mg/dL (8.5-10.1); MAGNESIUM 2.4 mg/dL (1.8-2.4); PHOSPHORUS 3.7 mg/dL (2.5-4.9); POTASSIUM 4.4 mmol/L (3.5-5.1)
[2020-04-05] MEDS: IV NS 0.9% 1,000 ML IV PRN ×2 (06:20→21:54)
[2020-04-05] MEDS: ENOXAPARIN SODIUM 40 MG/0.4 ML DISP.SYRIN SQ SCH ×2 (06:21→17:03)
--- NOTE | 2020-04-05 07:43 | NUR ---
RN CLOSING NOTES PATIENT CONFUSED AND RESTLESS IN BED. REMAINS ON HIGHFLOW O2 WITH NONREBREATHER, PULSE OX READING 94%. TELE MONITOR READING SINUS TACH, HEART RATE 128. IV PRESENT ON RIGHT FA, SIZE 18, INTACT & PATENT WITH NS RUNNING AT 50 ML/HR. BILATERAL SOFT WRIST RESTRAINTS IN PLACE FOR PATIENT SAFETY; SKIN CIRCULATION WNL. SAFETY MEASURES IN PLACE AND PATIENT'S NEEDS MET. BED LOCKED, HOB ELEVATED, SIDE RAILS X3. ENDORSED TO DAY SHIFT RN PLAN OF CARE.
--- NOTE | 2020-04-05 07:53 | NUR ---
GAS LOAD DISPATCHER OVER FLOW NOTES PATIENT CONFUSED AND RESTLESS IN BED. REMAINS ON HIGHFLOW O2 WITH NONREBREATHER, PULSE OX READING 94%. TELE MONITOR READING SINUS TACH, HEART RATE 130 IV PRESENT ON RIGHT FA, SIZE 18, INTACT & PATENT WITH NS RUNNING AT 50 ML/HR. BILATERAL SOFT WRIST RESTRAINTS IN PLACE FOR PATIENT SAFETY; SKIN CIRCULATION WNL. SAFETY MEASURES IN PLACE AND PATIENT'S NEEDS MET. BED LOCKED, HOB ELEVATED, SIDE RAILS X3. .WILL MONITOR
[2020-04-05 08:10] LABS: ABG BASE EXCESS -3.4 mmol/L; ABG OXYGEN SATURATION 92.9 % (92.0-98.5); ABG PCO2 28.4 mmHg (35.0-45.0); ABG PH 7.445 (7.350-7.450); ABG PO2 64.3 mmHg (75.0-100.0); AaDO2 620.3 mmHg; COHb 0.5 % (0.5-1.5); O2Hb 92.4 % (94.0-97.0); SITE, ABG Right Radial; VENT MODE, BG HFNC 60L/100% + NRB
[2020-04-05] MEDS: DEXAMETHASONE SOD PHOSPHATE 10 MG/ML VIAL IV SCH (08:17)
--- NOTE | 2020-04-05 10:29 | NUR ---
agricultural engineering technicians note per dr martinez nonrebreather mask and high flow 60l 100% saturation 91% dr martinez aware wbc 18.2
--- NOTE | 2020-04-05 14:08 | NUR ---
EXECUTIVE SOUS CHEF NOTE CONT TO MONITOR STILL ON NONREBREATHER MASK AND HIGH FLOW OF O2, SATURATION 97%
--- NOTE | 2020-04-05 15:41 | NUR ---
ICU OVER FLOW HR 135-140 ST. NO SOB NOTED SATURATION 95 % CALLED HENRY MILLS SURVEY SUPERVISOR WITH ORDER METOPROLOL 5 MG IVP ONE TIME, WILL F\U
[2020-04-05] MEDS: CEFTRIAXONE 1 G in IV D5W 50 ML IV SCH (15:43)
[2020-04-05] MEDS ORDERED: METOPROLOL TARTRATE INJ 5 MG/5 ML AMPUL IVP ONE (16:00)
--- NOTE | 2020-04-05 17:13 | NUR ---
PEER SPECIALIST OVERFLOW RN NOTE AFTER METOPROLOL 5 MG IVP GIVEN HR 110 ,UNABLE TO REMOVE SOFT RESTRAIN STILL HIGH RISK TO REMOVE ALL LINES
--- NOTE | 2020-04-05 17:59 | NUR ---
icu over flow rn note Yodit rn director fixed income at bedside ,notified about hr st and accessional [id number] ordered stat ekg ,called rt , will f\u
--- NOTE | 2020-04-05 18:40 | NUR ---
icu overflow rn note ekg stat done reported result to Yodit browning hospice director, no new order given at this time
[2020-04-05] MEDS ORDERED: TOCILIZUMAB 400 MG in IV NS 0.9% 80 ML IV ONE (21:00)
[2020-04-05] MEDS: ACETAMINOPHEN 325 MG TABLET PO PRN (21:54)
[2020-04-05] MEDS: ACETAMINOPHEN 650 MG/SUPP.RECT RC PRN (22:06)
[2020-04-06] VITALS (23 sets, daily range): BP systolic 94–159; BP diastolic 64–101
[2020-04-06] MEDS: BLOOD SUGAR DIAGNOSTIC 1 EACH STRIP IN SCH ×4 (05:59→23:42)
[2020-04-06 06:07] LABS: BASOPHILS % (AUTO) 0.2 % (0.0-2.0); EOSINOPHILS % (AUTO) 0.2 % (0.0-6.0); HEMATOCRIT 45 % (39-51); HEMOGLOBIN 15.2 g/dL (13.5-17.5); LYMPHOCYTES # (AUTO) 0.6 /CMM (0.8-4.8); MEAN CORPUSCULAR HGB CONC 34 g/dl (31.0-36.0); MEAN CORPUSCULAR VOLUME 93 fL (80-96); MONOCYTES # (AUTO) 0.4 /CMM (0.1-1.30); MONOCYTES % (AUTO) 3.1 % (2.0-12.0); NEUTROPHILS # (AUTO) 13.1 /CMM (1.8-8.9); NEUTROPHILS % (AUTO) 92.5 % (43.0-81.0); PLATELET COUNT (AUTO) 217 /CMM (150-450); RED BLOOD CELL COUNT(AUTO) 4.82 MIL/uL (4.5-6.0); WHITE BLOOD COUNT (AUTO) 14.2 K/uL (4.3-11.0)
[2020-04-06 06:18] LABS: CALCIUM, SERUM 9.1 mg/dL (8.5-10.1); CREATININE 1.1 mg/dL (0.6-1.3); MAGNESIUM 2.3 mg/dL (1.8-2.4); PHOSPHORUS 4.1 mg/dL (2.5-4.9); POTASSIUM 4.6 mmol/L (3.5-5.1)
[2020-04-06] MEDS: ENOXAPARIN SODIUM 40 MG/0.4 ML DISP.SYRIN SQ SCH ×3 (07:01→20:43)
--- NOTE | 2020-04-06 08:00 | NUR ---
RN OPENING NOTES PATIENT IN BED, CONFUSED, VERY AGITATED, ON SOFT RESTRAINS, ON BOTH MASK NON-REBREATHER MASK ON MAX SETTINGS, TOLERATING WELL, SPO2 IS 99%, NO DISTRESS NOTED, SINUS TACHY ON MONITOR, DOCTORS IS AWARE, SAFETY MEASURES PLACE, BED IS LOCKED IN LOWEST POSITION, WILL CONT TO MONITOR
[2020-04-06] MEDS: hydrALAZINE HCL 50 MG TABLET PO SCH ×3 (08:47→17:00)
[2020-04-06] MEDS: DEXAMETHASONE SOD PHOSPHATE 10 MG/ML VIAL IV SCH (08:51)
--- NOTE | 2020-04-06 09:33 | NUR ---
NPO STATUS NOTED
--- NOTE | 2020-04-06 11:00 | NUR ---
EXTREMELY CONFUSED AND AGITATED, MOVING AROUND, LOOSING HIS MASK, SPO2 IS DROPPING TO 70% AT THE SAME MOMENT HIS MASK IS MOVING FROM HIS FACE, REAPPLY AND SECURED MASK, SPO2 IS 100%
[2020-04-06] MEDS: INSULIN REGULAR, HUMAN 100 UNIT/ML 3 ML VIAL SQ PRN ×4 (12:03→23:42)
[2020-04-06] MEDS: NITROGLYCERIN 30 GM TUBE TP SCH ×2 (14:21→20:39)
[2020-04-06] MEDS: CEFTRIAXONE 1 G in IV D5W 50 ML IV SCH (16:34)
[2020-04-06] MEDS: IV NS 0.9% 1,000 ML IV PRN (17:49)
--- NOTE | 2020-04-06 18:51 | NUR ---
CLOSING NOTES REMAINS WITH THE SAME SETTINGS, KEPT CLEAN AND DRY, WILL ENDORSE TO PM SHIFT RN FOR EDWIN
--- NOTE | 2020-04-06 19:10 | NUR ---
RN OPENING NOTE RECEIVED PATIENT CONFUSED ON BED EYE CLOSED ON HIGH FLOW OXYGEN 60L AND 15L NON RE BREATHER MASK O2:96% TACHYCARDIA 146 NPO PATIENT IS OVER FLOW ICU PATIENT IV SITE IS ON RIGHT AC AND RIGHT FOREARM INTACT,IV HYDRATION RUNNING NS 50CC/HR,PATIENT BED IS ON LOW POSITION AND LOCKED,BED ALARM IS ON CONTINUE TO MONITOR.
[2020-04-06] MEDS ORDERED: LORAZEPAM INJ 2 MG/ML VIAL IV ONE (21:57)
--- NOTE | 2020-04-06 22:00 | NUR ---
RN NOTE HR IS 130-[address] OILING TRUCK DRIVER [employer]CDANIELS AND RECEIVED ORDER ATIVAN 1MG 0.5ML IV ONE TIME ONLY FOR ANXIETY AND TACHYCARDIA NOTED AND CARRIED OUT,CONTINUE TO MONITOR
[2020-04-06] MEDS ORDERED: MORPHINE SULFATE INJ 2 MG/ML DISP.SYRIN IVP ONE (23:45)
[2020-04-07] VITALS (24 sets, daily range): BP systolic 102–164; BP diastolic 56–98
--- NOTE | 2020-04-07 | NUR ---
RN NOTE BS IS 237 INSULIN NOT ADMINISTERED PATIENT IS NPO CONTINUE TO MONITOR,
--- NOTE | 2020-04-07 00:14 | NUR ---
RN NOTE PATIENT HR IS HIGH AND HAS TACHYCARDIA 130-160 CALLED CIRCUS PERFORMER [employer] AND RECEIVED ORDER FOR MORPHINE 1MG IV P ONE TIME ONLY NOTED AND CARRIED OUT.
[2020-04-07] MEDS: BLOOD SUGAR DIAGNOSTIC 1 EACH STRIP IN SCH ×4 (05:47→23:20)
[2020-04-07] MEDS: INSULIN REGULAR, HUMAN 100 UNIT/ML 3 ML VIAL SQ PRN ×4 (05:48→23:21)
--- NOTE | 2020-04-07 06:00 | NUR ---
RN NOTE BS IS 285 INSULIN NOT ADMINISTERED PATIENT IS NPO CONTINUE TO MONITOR
[2020-04-07 06:23] LABS: BASOPHILS % (AUTO) 0.1 % (0.0-2.0); EOSINOPHILS % (AUTO) 0.2 % (0.0-6.0); HEMATOCRIT 47 % (39-51); LYMPHOCYTES # (AUTO) 0.7 /CMM (0.8-4.8); MEAN CORPUSCULAR HGB CONC 34 g/dl (31.0-36.0); MEAN CORPUSCULAR VOLUME 93 fL (80-96); MONOCYTES # (AUTO) 0.5 /CMM (0.1-1.30); MONOCYTES % (AUTO) 2.7 % (2.0-12.0); NEUTROPHILS # (AUTO) 15.9 /CMM (1.8-8.9); PLATELET COUNT (AUTO) 176 /CMM (150-450); RED BLOOD CELL COUNT(AUTO) 5.01 MIL/uL (4.5-6.0); WHITE BLOOD COUNT (AUTO) 17.1 K/uL (4.3-11.0)
[2020-04-07 06:34] LABS: CREATININE 1.3 mg/dL (0.6-1.3); MAGNESIUM 2.6 mg/dL (1.8-2.4); PHOSPHORUS 4.4 mg/dL (2.5-4.9); POTASSIUM 4.5 mmol/L (3.5-5.1)
--- NOTE | 2020-04-07 06:50 | NUR ---
RN CLOSING NOTE PATIENT REMAINS ON ICU OVER FLOW,CONFUSED ON HIGH FLOW 60L AND 15L NON REBREATHER MASK O2:96% TACHYCARDIA 120-150,MD AWARE,IV SITE IS ON RIGHT AC AND RIGHT FOREARM INTACT PATENT,IV HYDRATION NS RUINING 50CC/HR,NPO KEPT CLEAN AND DRY ALL THE TIME,KEPT COMFORTABLE,ENDORSE NEXT COMING SHIFT FOR CONTINUATION OF CARE.
--- NOTE | 2020-04-07 07:52 | NUR ---
LAPIDARY APPRENTICE OVERFLOW PATIENT IN BED, NO S/S OF DISTRESS, CONFUSED, HIGH FLOW O2 RUNNING 60L AT 100%, AT 95%, INCONTINENT, CHUCKS IN PLACE, NPO, TELE MONITOR IN PLACE, TACHYCARDIA WITH HR 132, RAC 18G RUNNING NS 50ML/HR, RFA 18G, IVs INTACT CLEAN DRY, FLUSH WELL, BED LOCKED AND IN LOWEST POSITION, BED ALARM ON, SAFETY MEASURES IN PLACE WILL CONTINUE TO MONITOR.
[2020-04-07] MEDS: DEXAMETHASONE SOD PHOSPHATE 10 MG/ML VIAL IV SCH (08:09)
[2020-04-07] MEDS: hydrALAZINE HCL 50 MG TABLET PO SCH ×3 (08:09→17:00)
[2020-04-07] MEDS: NITROGLYCERIN 30 GM TUBE TP SCH ×2 (08:10→20:09)
--- NOTE | 2020-04-07 09:30 | NUR ---
INSTRUCTOR PRODUCT INSPECTION OVERFLOW CHANGED LINENS BECAUSE PATIENT WAS WET FROM URINE. TOLERATED WELL. REAPPLIED THE NONREBREATHER BECAUSE WHILE THE PATIENT MOVES IN BED HE REPEATEDLY DISPLACES THE MASK AND THE RN REAPPLIES IT.
--- NOTE | 2020-04-07 12:10 | NUR ---
CENTRAL SUPPLY ASSISTANT OVERFLOW PATIENTS BLOOD GLUCOSE IS 343, NOTIFIED MD MUKHEREJE, ASKED IF IT IS OK TO GIVE INSULIN COVERAGE EVEN IF THE PATIENT IS NPO.
--- NOTE | 2020-04-07 14:00 | NUR ---
CHECKERER HAND OVERFLOW PATIENT STATUS UNCHANGED. TOLERATING CARE. REPOSITIONED AND CHANGED LINENS BECAUSE PATIENT CONTINUES TO MOVE IN BED.
--- NOTE | 2020-04-07 16:00 | NUR ---
SALES PROMOTER OVERFLOW MIDLINE PLACED IN RIGHT UPPER ARM 18 GAUGE, PATIENT TOLERATED WELL, CLEAN DRY AND INTACT, FLUSHES EASILY.
[2020-04-07] MEDS: CEFTRIAXONE 1 G in IV D5W 50 ML IV SCH (16:50)
--- NOTE | 2020-04-07 17:00 | NUR ---
ACCESS TECH OVERFLOW MOVED IV MACHINE TO OUTSIDE OF THE ROOM, CHANGED LINES TO NEW, STARTED NEW BAG OF NS RUNNING AT 50ML/HR, ROCEPHIN RUNNING INTO MIDLINE IN R UPPER ARM 18 GAUGE.
--- NOTE | 2020-04-07 18:00 | NUR ---
REPOSITIONED AND CLEANED PATIENT, TOLERATED WELL. CONTINUES TO MOVE IN BED CAUSING THE PATIENT TO SCOOT DOWN AND TO THE SIDE OF THE BED AND DISPLACES THE HIGH FLOW OR NON REBREATHER. REPLACED ACCORDINGLY.
--- NOTE | 2020-04-07 19:15 | NUR ---
RECEIVED PT ON BED PATIENT CONFUSED AND RESTLESS IN BED. REMAINS ON HIGHFLOW O2 WITH NONREBREATHER, PULSE OX READING 94%. TELE MONITOR READING SINUS TACH, HEART RATE 130 IV PRESENT ON RIGHT AC #18 AND ALEIDA MIDLINE , INTACT & PATENT WITH NS RUNNING AT 50 ML/HR. BILATERAL SOFT WRIST RESTRAINTS IN PLACE FOR PATIENT SAFETY; SKIN CIRCULATION WNL. SAFETY MEASURES IN PLACE . BED LOCKED, HOB ELEVATED, SIDE RAILS X3. .WILL CONT TO MONITOR
[2020-04-07] MEDS: ENOXAPARIN SODIUM 40 MG/0.4 ML DISP.SYRIN SQ SCH (20:05)
[2020-04-08] VITALS (24 sets, daily range): BP systolic 100–158; BP diastolic 60–98
--- NOTE | 2020-04-08 02:20 | NUR ---
PT STILL ON HIGH FLOW AND NRM SPO2 93-95% STILL TACHYCARDIC WITH HR 125-132 BPM, NO PAIN NOTED WILL CONT TO MONITOR THE PT
[2020-04-08] MEDS: IV NS 0.9% 1,000 ML IV PRN (06:00)
[2020-04-08] MEDS: BLOOD SUGAR DIAGNOSTIC 1 EACH STRIP IN SCH ×4 (06:03→23:09)
[2020-04-08] MEDS: INSULIN REGULAR, HUMAN 100 UNIT/ML 3 ML VIAL SQ PRN ×4 (06:07→23:08)
--- NOTE | 2020-04-08 07:09 | NUR ---
PT ON BED AWAKE, CONFUSED, ON TELE MONITOR READS SINUS TACHY 130'S, STILL ON BILATERAL WRIST RESTRAINTS, STILL ON HIGHFLOW AND NON REBREATHER MASK SPO2 95% ALL NEEDS ATTENDED, DROPLET ISOLATION MAINTAIN SIDE RAILS UPX3 WILL ENDORSED TO AM SHIFT NURSE
--- NOTE | 2020-04-08 07:25 | NUR ---
MEDICAL TERRITORY MANAGER OVERFLOW NOTES RECEIVED PT IN BED. NO S/S OF DISTRESS. CONFUSED. O2 ON HIGH FLOW 60L @100%, SATURATING @97%. NPO. ST ON TELE MONITOR, HR @100S. R AC 318 RUNNING NS @50ML/HR AND R FA #18, BOTH INTACT, PATENT AND FLUSHES WELL. BILATERAL SOFT ARM RESTRAINTS IN PLACE. CHECKED FOR CIRCULATION. SAFETY MEASURES IN PLACE. CALL LIGHT WITHIN REACH. BED LOCKED AND IN LOWEST POSITION. BED ALARM ON. WILL CONTINUE TO MONITOR.
[2020-04-08 07:49] LABS: BASOPHILS % (AUTO) 0.1 % (0.0-2.0); EOSINOPHILS % (AUTO) 0.2 % (0.0-6.0); HEMATOCRIT 49 % (39-51); HEMOGLOBIN 16.2 g/dL (13.5-17.5); LYMPHOCYTES # (AUTO) 0.9 /CMM (0.8-4.8); LYMPHOCYTES % (AUTO) 3.6 % (20.0-44.0); MEAN CORPUSCULAR HGB CONC 33 g/dl (31.0-36.0); MEAN CORPUSCULAR VOLUME 94 fL (80-96); MONOCYTES # (AUTO) 0.6 /CMM (0.1-1.30); MONOCYTES % (AUTO) 2.4 % (2.0-12.0); NEUTROPHILS # (AUTO) 22.7 /CMM (1.8-8.9); NEUTROPHILS % (AUTO) 93.7 % (43.0-81.0); PLATELET COUNT (AUTO) 124 /CMM (150-450); RED BLOOD CELL COUNT(AUTO) 5.18 MIL/uL (4.5-6.0); WHITE BLOOD COUNT (AUTO) 24.2 K/uL (4.3-11.0)
[2020-04-08 08:07] LABS: CALCIUM, SERUM 8.9 mg/dL (8.5-10.1); CREATININE 1.3 mg/dL (0.6-1.3); MAGNESIUM 2.6 mg/dL (1.8-2.4); POTASSIUM 4.3 mmol/L (3.5-5.1)
[2020-04-08] MEDS: DEXAMETHASONE SOD PHOSPHATE 10 MG/ML VIAL IV SCH (08:45)
[2020-04-08 08:55] LABS: ABG BASE EXCESS -3.8 mmol/L; ABG OXYGEN SATURATION 97.5 % (92.0-98.5); ABG PCO2 30.6 mmHg (35.0-45.0); ABG PH 7.417 (7.350-7.450); ABG PO2 99.7 mmHg (75.0-100.0); AaDO2 582.7 mmHg; COHb 0.1 % (0.5-1.5); MetHb 0.3 % (0.0-1.5); O2Hb 97.1 % (94.0-97.0); SITE, ABG Right Radial; VENT MODE, BG HFNC 60L 100% +NRB
[2020-04-08] MEDS: hydrALAZINE HCL 50 MG TABLET PO SCH ×3 (09:00→17:00)
[2020-04-08] MEDS: NITROGLYCERIN 30 GM TUBE TP SCH ×2 (09:34→21:48)
[2020-04-08] MEDS ORDERED: IV 1/2NS 1000 ML 1,000 ML IV PRN (13:30)
[2020-04-08 16:38] LABS: C-REACTIVE PROTEIN 3.1 mg/dL (0.0-0.9)
--- NOTE | 2020-04-08 19:25 | NUR ---
SHOPPER INSIGHTS MANAGER OVERFLOW NOTES PT IN BED. NO S/S OF DISTRESS. CONFUSED. O2 ON HIGH FLOW 60L @100%, SATURATING @97%. NPO. ST ON TELE MONITOR, HR @100S. R AC #18 RUNNING NS @50ML/HR AND ALEIDA MIDLINE, BOTH INTACT, PATENT AND FLUSHES WELL. BILATERAL SOFT ARM RESTRAINTS IN PLACE. CHECKED FOR CIRCULATION. SAFETY MEASURES IN PLACE. CALL LIGHT WITHIN REACH. BED LOCKED AND IN LOWEST POSITION. BED ALARM ON. WILL ENDORSE TO NIGHT NURSE FOR EDWIN.
--- NOTE | 2020-04-08 19:45 | NUR ---
ICU OVERFLOW/RN OPENING NOTE THE PATIENT IS RECEIVED IN BED. THE PATIENT ALERT TO HIS NAME. PATIENT IS OB JANICE FLOW OXYGEN RUNNING AT 60L AT 100%. RESPIRATION REGULAR. TELE BOX READING IS SINUS TACHYCARDIA 139. RAC G 18 PATENT AND SALINE LOCKED. ALEIDA G 18 MIDLINE PATENT AND NS INFUSING AT 50ML/HR AND NO S/S INFILTRATION NOTED. BED LOW AND LOCKED. SIDE RAILS UP X2 CALL LIGHT WITHIN REACH. WILL CONTINUE TO MONITOR.
--- NOTE | 2020-04-08 21:15 | NUR ---
ICU OVERFLOW/RN NOTE BILATERAL SOFT WRIST RESTRAINS PER ALEXX MONTOYA. NOTED AND CARRIED OUT.
[2020-04-08] MEDS: ENOXAPARIN SODIUM 40 MG/0.4 ML DISP.SYRIN SQ SCH (21:44)
--- NOTE | 2020-04-08 22:51 | NUR ---
ICU OVERFLOW/RN CLOSING NOTE THE PATIENT IS ALERT TO SELF AND ABLE TO RESPOND TO HIS NAME AND CYMRO LANGUAGE BY WHISPERING/MUMBLING A WORD. PATIENT REMAINS ON JANICE FLOW OXYGEN RUNNING AT 60L AT 100%. RESPIRATION REGULAR WITH EPISODES OF SOB. TELE BOX READING IS SINUS TACHYCARDIA 139. ALEIDA G 18 MIDLINE PATENT AND 1/2 NS INFUSING AT 50ML/HR AND NO S/S INFILTRATION NOTED. BED LOW AND LOCKED. TELE BOX READING IS SINUS TACHYCARDIA 130. SIDE RAILS UP X2. BILATERAL SOFT WRIST RESTRAINS ON NO S/S POOR CIRCULATION OR SKIN BREAKDOWN NOTED. CALL LIGHT WITHIN REACH. BED LOW AND LOCKED. REPORT GIVEN TO RN CYNTHIA.
[2020-04-09] VITALS (23 sets, daily range): BP systolic 100–134; BP diastolic 41–91
[2020-04-09] MEDS: BLOOD SUGAR DIAGNOSTIC 1 EACH STRIP IN SCH ×4 (05:27→23:45)
[2020-04-09] MEDS: INSULIN REGULAR, HUMAN 100 UNIT/ML 3 ML VIAL SQ PRN ×4 (05:28→23:50)
--- NOTE | 2020-04-09 06:45 | NUR ---
PT ON BED ASLEEP STILL ON HIGH FLOW O2 RATE PER MD SPO2 94% HR STILL ON 120'S NO SIGNIFICANT CHANGES ON CONDITION NOTED ALL NEEDS ATTENDED DROPLET ISOLATION MAINTAIN FOR COVID, BED ON LOWEST POSITION AND LOCKED SIDE RAILS UPX 2 WILL ENDORSED TO AM SHIFT NURSE
[2020-04-09 07:35] LABS: EOSINOPHILS % (AUTO) 0.1 % (0.0-6.0); HEMATOCRIT 50 % (39-51); HEMOGLOBIN 16.4 g/dL (13.5-17.5); LYMPHOCYTES # (AUTO) 0.9 /CMM (0.8-4.8); LYMPHOCYTES % (AUTO) 2.6 % (20.0-44.0); MEAN CORPUSCULAR HGB CONC 33 g/dl (31.0-36.0); MEAN CORPUSCULAR VOLUME 94 fL (80-96); MONOCYTES # (AUTO) 0.9 /CMM (0.1-1.30); MONOCYTES % (AUTO) 2.6 % (2.0-12.0); NEUTROPHILS # (AUTO) 32.8 /CMM (1.8-8.9); NEUTROPHILS % (AUTO) 94.7 % (43.0-81.0); PLATELET COUNT (AUTO) 79 /CMM (150-450); RED BLOOD CELL COUNT(AUTO) 5.26 MIL/uL (4.5-6.0)
[2020-04-09 07:48] LABS: WHITE BLOOD COUNT (AUTO) 34.7 K/uL (4.3-11.0)
--- NOTE | 2020-04-09 08:00 | NUR ---
PT RECEIVED IN BED ON HIGH FLOW 60L, 100% FIO2. PATIENT WAS AOX1 WITH RESPONSE TO DISTRESS. SOB. RESTRAINTSS BILATERALLY ORDERED. ON MONITOR SINUS TACH 130 BPM. PATIENT ON DIAPER. SKIN IN TACT. NPO. RIGHT AC 18 SALINE LOCK AND RIGHT UPPER ARM ALEIDA MIDLINE RUNNING HALF NS AT 50 ML/HR. BED LEFT AT LOWEST LEVEL, CALL GRAVES IN REACH. 3 GUARD RAILS RAISED. ALL SAFETY MEASURES IN PLACE. WILL CONTINUE TO MONITOR CLOSELY.
[2020-04-09 08:04] LABS: CALCIUM, SERUM 8.6 mg/dL (8.5-10.1); CARBON DIOXIDE 20 mmol/L (21-32); CHLORIDE 122 mmol/L (98-107); CREATININE 1.6 mg/dL (0.6-1.3); GLUCOSE 171 mg/dL (74-106); MAGNESIUM 2.6 mg/dL (1.8-2.4); PHOSPHORUS 4.8 mg/dL (2.5-4.9); POTASSIUM 4.9 mmol/L (3.5-5.1); UREA NITROGEN, BLOOD 75 mg/dL (7-18)
[2020-04-09 08:22] LABS: SODIUM SERUM 158 mmol/L (136-145)
[2020-04-09] MEDS: DEXAMETHASONE SOD PHOSPHATE 10 MG/ML VIAL IV SCH (08:31)
[2020-04-09] MEDS: NITROGLYCERIN 30 GM TUBE TP SCH ×2 (08:32→21:32)
[2020-04-09] MEDS: hydrALAZINE HCL 50 MG TABLET PO SCH ×3 (08:44→17:00)
[2020-04-09 09:14] LABS: BAND % (MANUAL) 6 % (0.0-5.0); LYMPHOCYTES % (MANUAL) 4 % (16-48); MONOCYTES % (MANUAL) 6 % (0-11.0); NEUTROPHILS % (MANUAL) 84 (42-76)
[2020-04-09 11:23] LABS: ABG BASE EXCESS -9.3 mmol/L; ABG OXYGEN SATURATION 97.6 % (92.0-98.5); ABG PCO2 32.2 mmHg (35.0-45.0); ABG PH 7.304 (7.350-7.450); ABG PO2 112.5 mmHg (75.0-100.0); AaDO2 568.3 mmHg; COHb 0.3 % (0.5-1.5); MetHb 0.4 % (0.0-1.5); O2Hb 96.9 % (94.0-97.0); SITE, ABG Left Radial
[2020-04-09 11:32] LABS: FERRITIN 2648 ng/mL (8-388)
[2020-04-09 11:33] LABS: CREATINE KINASE, TOTAL 1573 U/L (39-308)
[2020-04-09] MEDS: MICAFUNGIN SODIUM 100 MG in IV NS 0.9% 100 ML IV SCH (12:29)
[2020-04-09 13:04] LABS: C-REACTIVE PROTEIN 3.4 mg/dL (0.0-0.9)
[2020-04-09] MEDS: IV D5W 1,000 ML IV PRN (13:17)
--- NOTE | 2020-04-09 13:51 | NUR ---
1300 HYDRALAZINE HELD. BLOOD PRESSURE 110/68. PRIMARY MD CONSIDERING INTUBATION.
[2020-04-09] MEDS: VANCOMYCIN 1 GM in IV D5W 250 ML IV SCH (14:08)
[2020-04-09] MEDS: MEROPENEM 500 MG in IV NS 0.9% 50 ML IV SCH (15:41)
--- NOTE | 2020-04-09 15:56 | NUR ---
GAMING CATHETER AND NGT INSERTED ORDERED BY MD WOODS. URINE CX COLLECTED, AWAITING PICK-UP FROM LAB
--- NOTE | 2020-04-09 19:30 | NUR ---
CHIEF OF SAFETY AND PROTECTION OVERFLOW OPENING NOTES RECEIVED PATIENT IN BED SEDATED. PATIENT REMAINS IN BED ON PRESCRIBED HIGH FLOW, 60L AND 100% FIO2. PATIENT REMAINS TACHYPNEIC, RT AND MD BARTLETT AWARE, NO IMPENDING INTUBATION, WILL CONTINUE TO MONITOR. O2 SATS 96%. PATIENT HAS GAMING DRAINING YELLOW CLEAR URINE, LEFT NARE NGT. TF ORDERED, BUT NO PUMPS AVAILABLE AT THIS TIME. PATIENT RAC 18 SL, ALEIDA MIDLINE RUNNING D5W AT 125 ML/HR. SAFETY MEASURES ARE IN PLACE, BED IS LOCKED AND PLACED IN THE LOWEST POSITION, CALL LIGHT WITHIN REACH. WILL CONTINUE TO MONITOR THROUGH OUT SHIFT.
--- NOTE | 2020-04-09 19:47 | NUR ---
PT REMAINS IN BED ON PRESCRIBED HIGH FLOW, 60L AND 100% FIO2. PT REMAINS TACHYPNIC, RT AND MD BARTLETT AWARE, NO IMPENDING INTUBATION, WILL CONTINUE TO MONITOR. O2 SATS 96%. PT IS AOX1 LATVIAN SPEAKING NON-VERBAL. PT HAS GAMING DRAINING YELLOW CLEAR URINE, LEFT NARE NGT. TF ORDERED, BUT NO PUMPS AVAILABLE, ONCOMING GENE PIMENTEL MADE AWARE. PT RAC 18 SL, ALEIDA MIDLINE RUNNING D5W AT 125 ML/HR. PT IN BED LOCKED LOWEST POSITION, CALL LIGHT WITHIN REACH, ALL SAFETY MEASURES IN PLACE.
[2020-04-09] MEDS ORDERED: GLUCERNA 1.2 1,000 ML BOTTLE NG PRN (20:00)
[2020-04-09] MEDS: ENOXAPARIN SODIUM 40 MG/0.4 ML DISP.SYRIN SQ SCH (21:00)
[2020-04-10] VITALS (21 sets, daily range): BP systolic 88–128; BP diastolic 37–83
[2020-04-10] MEDS: MEROPENEM 500 MG in IV NS 0.9% 50 ML IV SCH ×2 (00:17→12:46)
--- NOTE | 2020-04-10 05:44 | NUR ---
PATIENT RECEIVED ON HFNC 60L 100%, TOLERATING WITH NO DISTRESS/SOB NOTED. AMBU BAG AT BEDSIDE. AIRVO ALARM AUDIBLE AND VISIBLE. Addendum: 04/10/20 at 0546 by ARNALDO COLBERT RT Amended: Links added.
[2020-04-10] MEDS: BLOOD SUGAR DIAGNOSTIC 1 EACH STRIP IN SCH ×3 (06:52→17:50)
[2020-04-10] MEDS: INSULIN REGULAR, HUMAN 100 UNIT/ML 3 ML VIAL SQ PRN ×4 (06:53→18:36)
[2020-04-10] MEDS: VANCOMYCIN 1 GM in IV D5W 250 ML IV SCH (06:55)
--- NOTE | 2020-04-10 07:00 | NUR ---
VIRTUALIZATION ARCHITECT OVERFLOW CLOSING NOTES PATIENT IN BED SEDATED. PATIENT REMAINS IN BED ON PRESCRIBED HIGH FLOW, 60L AND 100% FIO2. PATIENT HAS GAMING DRAINING YELLOW CLEAR URINE IN PLACE, LEFT NARE NGT. PATIENT RAC 18 SL, ALEIDA MIDLINE RUNNING D5W AT 125 ML/HR. ALL PATIENTS NEEDS HAVE BEEN MET DURING SHIFT. SAFETY MEASURES ARE IN PLACE, BED IS LOCKED AND PLACED IN THE LOWEST POSITION, CALL LIGHT WITHIN REACH. WILL ENDORSE CARE TO DAY SHIFT NURSE.
[2020-04-10 07:09] LABS: CALCIUM, SERUM 8.7 mg/dL (8.5-10.1); CARBON DIOXIDE 20 mmol/L (21-32); CHLORIDE 120 mmol/L (98-107); CREATININE 2.3 mg/dL (0.6-1.3); GLUCOSE 271 mg/dL (74-106); MAGNESIUM 3.1 mg/dL (1.8-2.4); PHOSPHORUS 5.3 mg/dL (2.5-4.9); POTASSIUM 5.7 mmol/L (3.5-5.1); SODIUM SERUM 153 mmol/L (136-145)
[2020-04-10 07:13] LABS: BASOPHILS % (AUTO) 0.1 % (0.0-2.0); HEMATOCRIT 49 % (39-51); HEMOGLOBIN 15.6 g/dL (13.5-17.5); LYMPHOCYTES # (AUTO) 1.4 /CMM (0.8-4.8); LYMPHOCYTES % (AUTO) 3.7 % (20.0-44.0); MEAN CORPUSCULAR HGB CONC 32 g/dl (31.0-36.0); MEAN CORPUSCULAR VOLUME 98 fL (80-96); MONOCYTES # (AUTO) 1.2 /CMM (0.1-1.30); MONOCYTES % (AUTO) 3.1 % (2.0-12.0); NEUTROPHILS # (AUTO) 35.5 /CMM (1.8-8.9); NEUTROPHILS % (AUTO) 93.1 % (43.0-81.0); PLATELET COUNT (AUTO) 57 /CMM (150-450); RED BLOOD CELL COUNT(AUTO) 4.99 MIL/uL (4.5-6.0)
[2020-04-10 07:32] LABS: UREA NITROGEN, BLOOD 109 mg/dL (7-18)
--- NOTE | 2020-04-10 07:42 | NUR ---
ICU/RN OPENING NOTES RELIEVED PATIENT ON BED. PATIENT IS ON HIGH FLOW OXYGEN AT 60LPM 100%. PATIENT IN NO APPARENT RESPIRATORY DISTRESS NOTED. NO SIGN AND SYMPTOM OF PAIN NOTED AT THIS TIME. TELE MONITOR READING SINUS TACHY 120 BPM. WILL CONTINUE TO MONITOR.
[2020-04-10 07:49] LABS: WHITE BLOOD COUNT (AUTO) 38.1 K/uL (4.3-11.0)
--- NOTE | 2020-04-10 08:00 | NUR ---
ICU/RN NOTES WBC 38.1 BUN 109 MD IS AWARE NO NEW ORDER AT TIME.
[2020-04-10 08:01] LABS: CREATINE KINASE, TOTAL 1789 U/L (39-308); FERRITIN 2914 ng/mL (8-388)
[2020-04-10 08:04] LABS: LYMPHOCYTES % (MANUAL) 2 % (16-48); MONOCYTES % (MANUAL) 1 % (0-11.0); NEUTROPHILS % (MANUAL) 97 (42-76)
[2020-04-10] MEDS: NITROGLYCERIN 30 GM TUBE TP SCH ×2 (09:00→21:00)
[2020-04-10] MEDS: hydrALAZINE HCL 50 MG TABLET PO SCH ×3 (09:00→17:00)
--- NOTE | 2020-04-10 09:15 | NUR ---
TELE/RN NOTES BP 93/60 P 114 APRESOLINE 50 MG 1 TAB P.O. WAS NOT ADMINISTERED. WILL CONTINUE TO MONITOR.
[2020-04-10] MEDS ORDERED: FUROSEMIDE 100 MG/10 ML VIAL IV ONE (09:30)
[2020-04-10] MEDS: IV D5W 1,000 ML IV PRN ×2 (09:50→17:56)
[2020-04-10] MEDS ORDERED: SODIUM POLYSTYRENE SULFONATE 15 G/60 ML BOTTLE PO ONE (10:30)
[2020-04-10] MEDS: MICAFUNGIN SODIUM 100 MG in IV NS 0.9% 100 ML IV SCH (12:03)
--- NOTE | 2020-04-10 13:09 | NUR ---
TELE/RN NOTES BP 105/69 P 117 APRESOLINE 50 MG 1 TAB P.O. WAS NOT ADMINISTERED. WILL CONTINUE TO MONITOR.
[2020-04-10 15:03] LABS: CALCIUM, SERUM 8.5 mg/dL (8.5-10.1); CARBON DIOXIDE 18 mmol/L (21-32); CHLORIDE 121 mmol/L (98-107); CREATININE 2.7 mg/dL (0.6-1.3); POTASSIUM 4.9 mmol/L (3.5-5.1); SODIUM SERUM 155 mmol/L (136-145)
[2020-04-10 15:09] LABS: GLUCOSE 433 mg/dL (74-106); UREA NITROGEN, BLOOD 119 mg/dL (7-18)
--- NOTE | 2020-04-10 15:15 | NUR ---
dr. haile notified regarding critical lab results bun/crea.
--- NOTE | 2020-04-10 16:00 | NUR ---
per dr. mic marie is aware of critical lab results.
--- NOTE | 2020-04-10 17:54 | NUR ---
ICU/RN NOTES BP 84/44 P 120 APRESOLINE 50MG P.O. WAS NOT ADMINISTERED.
--- NOTE | 2020-04-10 18:43 | NUR ---
ICU/RN NOTES 17:40 BLOOD SUGAR 446MG/DL 10 UNITS WAS GIVEN RECHECKED 1829 425MG/DL SECOND DOSE 10 UNITS WAS GIVEN STAT GLUCOSE LAB WAS ORDER. DR. MUKHERJEE AND CHARGE NURSE IS AWARE. WILL CONTINUE TO MONITOR.
--- NOTE | 2020-04-10 19:23 | NUR ---
ICU/RN CLOSING NOTES PATIENT IS ON BED, NON-VERBAL. PATIENT IS ON HIGH FLOW 60LPM OXYGEN TOLERATING WELL. PATIENT IN NO APPARENT RESPIRATORY DISTRESS NOTED. NO SIGN AND SYMPTOM OF PAIN NOTED AT THIS TIME. TELE MONITOR READING SINUS TACH 125BPM. IV ACCESS RIGHT AC # 18 G, RIGHT UPPER # 18 MIDLINE WITH IV FLUID OF D5W 1L AT 150ML/HR ON AND INFUSING WELL. SEEN AND EXAMINED BY MD WITH ORDERS MADE AND CARRIED OUT. ALL DUE MEDICATIONS WAS GIVEN. SAFETY PERSECUTIONS WAS IN PLACED. BED IN LOWEST POSITION AND LOCKED. SIDERAILS UP X2. CALL LIGHT WITHIN REACH. WILL ENDORSED TO CORRESPONDENCE REPRESENTATIVE FOR EDWIN.
[2020-04-10] MEDS ORDERED: ETOMIDATE 2 MG/ML VIAL ONE (21:00)
[2020-04-10] MEDS ORDERED: SUCCINYLCHOLINE CHLORIDE 20 MG/ML VIAL ONE (21:00)
[2020-04-10] MEDS: ENOXAPARIN SODIUM 40 MG/0.4 ML DISP.SYRIN SQ SCH (21:07)
[2020-04-10 21:59] LABS: ABG BASE EXCESS -9.8 mmol/L; ABG PCO2 35.1 mmHg (35.0-45.0); ABG PH 7.276 (7.350-7.450); ABG PO2 78.1 mmHg (75.0-100.0); AaDO2 599.8 mmHg; COHb 0.3 % (0.5-1.5); MetHb 0.3 % (0.0-1.5); O2Hb 93.4 % (94.0-97.0); SITE, ABG Right Radial
[2020-04-10] MEDS: HYDROCODONE/APAP 5/325MG TABLET PO PRN (22:09)
[2020-04-10] MEDS ORDERED: NOREPINEPHRINE 4 MG/4 ML AMPUL IV ONE (22:11)
[2020-04-10] MEDS ORDERED: SODIUM BICARBONATE SYR 50 MEQ/50 ML DISP.SYRIN IV ONE (22:30)
[2020-04-10] MEDS: NOREPINEPHRINE 8 MG in IV NS 0.9% 242 ML IV PRN ×2 (22:46→23:00)
[2020-04-11] VITALS (40 sets, daily range): BP systolic 30–192; BP diastolic 41–109
[2020-04-11 00:19] LABS: BASOPHILS # (AUTO) 0.1 /CMM (0.0-0.2); BASOPHILS % (AUTO) 0.2 % (0.0-2.0); EOSINOPHILS % (AUTO) 0.1 % (0.0-6.0); HEMATOCRIT 47 % (39-51); HEMOGLOBIN 14.8 g/dL (13.5-17.5); LYMPHOCYTES # (AUTO) 1.3 /CMM (0.8-4.8); LYMPHOCYTES % (AUTO) 3.2 % (20.0-44.0); MEAN CORPUSCULAR HGB CONC 32 g/dl (31.0-36.0); MEAN CORPUSCULAR VOLUME 97 fL (80-96); MONOCYTES % (AUTO) 2.5 % (2.0-12.0); NEUTROPHILS # (AUTO) 39.2 /CMM (1.8-8.9); RED BLOOD CELL COUNT(AUTO) 4.81 MIL/uL (4.5-6.0)
[2020-04-11 00:41] LABS: ALANINE AMINOTRANSFERASE 137 U/L (12-78); ALBUMIN 1.8 g/dL (3.4-5.0); ALKALINE PHOSPHATASE 218 U/L (46-116); ASPARTATE AMINOTRANSFERASE 129 U/L (15-37); BILIRUBIN,TOTAL 3.5 mg/dL (0.2-1.0); CALCIUM, SERUM 7.8 mg/dL (8.5-10.1); CARBON DIOXIDE 21 mmol/L (21-32); CHLORIDE 117 mmol/L (98-107); CREATININE 3.7 mg/dL (0.6-1.3); POTASSIUM 4.1 mmol/L (3.5-5.1); SODIUM SERUM 153 mmol/L (136-145); TOTAL PROTEIN, SERUM 4.9 g/dL (6.4-8.2)
[2020-04-11 00:47] LABS: PLATELET COUNT (AUTO) 59 /CMM (150-450); WHITE BLOOD COUNT (AUTO) 41.6 K/uL (4.3-11.0)
[2020-04-11 01:00] LABS: GLUCOSE 562 mg/dL (74-106); UREA NITROGEN, BLOOD 133 mg/dL (7-18)
[2020-04-11] MEDS: MEROPENEM 500 MG in IV NS 0.9% 50 ML IV SCH ×2 (01:00→14:25)
[2020-04-11] MEDS: VANCOMYCIN 1 GM in IV D5W 250 ML IV SCH (01:00)
--- NOTE | 2020-04-11 01:00 | NUR ---
RN NOTES TOMAS RN MADE AWARE OF CRITICAL RESULT GLUCOSE AND BUN RELAYED BY SUZAN FROM LABORATORY
[2020-04-11 01:10] LABS: BAND % (MANUAL) 28 % (0.0-5.0); NEUTROPHILS % (MANUAL) 71 (42-76)
[2020-04-11 01:11] LABS: MONOCYTES % (MANUAL) 1 % (0-11.0)
[2020-04-11 01:16] LABS: LYMPHOCYTES % (MANUAL) 0 % (16-48)
[2020-04-11] MEDS: INSULIN REGULAR, HUMAN 100 UNIT/ML 3 ML VIAL SQ PRN ×2 (01:18→06:43)
[2020-04-11] MEDS: BLOOD SUGAR DIAGNOSTIC 1 EACH STRIP IN SCH ×3 (01:19→14:25)
[2020-04-11] MEDS ORDERED: PROPOFOL 100 ML ONE (03:54)
[2020-04-11] MEDS: PROPOFOL 100 ML IV PRN ×3 (04:00→12:14)
--- NOTE | 2020-04-11 04:16 | NUR ---
RN NOTES 0330 Godfrey MONTOYA CAME TO CHECK PATIENT AFTER GENE MARIN NOTIFIED HER OF PATIENT BEING TACHYPNEIC AND TACHYCARDIC. CALLED FAMILY AFTER HER ASSESSMENT, DAUGHTER CONSENTED FOR INTUBATION. DR. ARIZMENDI FROM ER WAS CALLED ALSO. PREPARED PATIENT FOR INTUBATION 404 ETOMIDATE 20MG AND SUCCINYLCHOLINE 150MG ADMINISTERED BY LEONEL RUTHERFORD RN 040 PATIENT INTUBATED SIZE 7.5; 23CM AT LIP XRAY WAS CALLED; STARTED PATIENT ON DIPRIVAN Addendum: 04/11/20 at 0709 by TERE LINDO RN 529 NOTIFIED Godfrey MONTOYA OF ABG RESULT POST INTUBATION, SPOKE TO ED, RT; VENT CHANGES DONE
[2020-04-11] MEDS: ACETAMINOPHEN 325 MG TABLET PO PRN (04:54)
[2020-04-11] MEDS: HYDROCODONE/APAP 5/325MG TABLET PO PRN (04:55)
--- NOTE | 2020-04-11 05:12 | NUR ---
RN notes Received patient in bed, with 02sat of 93%. Noted with difficulty breathing, respiration shallow and fast, barrel chest. Seen by RT, no new recommendation given at this time. Sugar is 463 at 22:00 and 411 at 01:00. Lethargic, unable to arouse. At about 22:30, noted BP still low at SBP 75's to 85's. Patient was seen and evaluated by RT, no recommendation given. Called MD, spoke with Dr. Moreland, ordered to start Levo drip. Was started at 0.1 mcg/kg/hrand slowly increased to 0.2mgc/kg/hr. SBP was maintained at 100's. at about 03:30 noted patient's HR was elevated from 120's to 145'sbpm. Called MD and ordered patient to be intubated. Dr. Moreland spoke with the family and consent obtained for intubation. Patient was intubated by ER Doctor, Dr. Loving. Procedure well tolerated. Started on profopol drip at 5mcg/kg/hr and increased slowly to 100mcg/kg/hr in two hours. Patient is sedated. No physical manifestation of pain or discomfort. Order for Vent setting by Dr. Moreland given to RT Arley. Bilateral wrist restraints in place, released every 2 hours for hygiene, circulation and repositioning. Continuous monitoring done. Kept clean and dry. Will endorse to AM shift for continuity of care.
[2020-04-11] MEDS ORDERED: NOREPINEPHRINE 4 MG/4 ML AMPUL IV ONE (05:54)
[2020-04-11] MEDS ORDERED: Sodium Bicarbonate 100 MEQ in IV NS 0.9% 1,000 ML IV PRN (06:00)
[2020-04-11] MEDS: NOREPINEPHRINE 8 MG in IV NS 0.9% 242 ML IV PRN ×2 (06:18→12:17)
[2020-04-11 07:45] LABS: ABG BASE EXCESS -9.6 mmol/L; ABG OXYGEN SATURATION 95.3 % (92.0-98.5); ABG PCO2 52.3 mmHg (35.0-45.0); ABG PH 7.181 (7.350-7.450); ABG PO2 90.2 mmHg (75.0-100.0); AaDO2 570.5 mmHg; COHb 0.2 % (0.5-1.5); MetHb 0.3 % (0.0-1.5); O2Hb 94.8 % (94.0-97.0); SITE, ABG Right Radial; VENT MODE, BG AC 24 500 100 +5
[2020-04-11] MEDS: hydrALAZINE HCL 50 MG TABLET PO SCH ×2 (09:00→13:00)
[2020-04-11] MEDS: NITROGLYCERIN 30 GM TUBE TP SCH (09:00)
[2020-04-11] MEDS: MICAFUNGIN SODIUM 100 MG in IV NS 0.9% 100 ML IV SCH (12:43)
[2020-04-11 15:16] LABS: BASOPHILS # (AUTO) 0.1 /CMM (0.0-0.2); BASOPHILS % (AUTO) 0.3 % (0.0-2.0); EOSINOPHILS % (AUTO) 0.5 % (0.0-6.0); HEMATOCRIT 44 % (39-51); HEMOGLOBIN 14.2 g/dL (13.5-17.5); LYMPHOCYTES # (AUTO) 4.5 /CMM (0.8-4.8); LYMPHOCYTES % (AUTO) 9.7 % (20.0-44.0); MEAN CORPUSCULAR HGB CONC 32 g/dl (31.0-36.0); MEAN CORPUSCULAR VOLUME 95 fL (80-96); MONOCYTES # (AUTO) 1.4 /CMM (0.1-1.30); MONOCYTES % (AUTO) 3.1 % (2.0-12.0); NEUTROPHILS # (AUTO) 40.3 /CMM (1.8-8.9); NEUTROPHILS % (AUTO) 86.4 % (43.0-81.0); PLATELET COUNT (AUTO) 71 /CMM (150-450); RED BLOOD CELL COUNT(AUTO) 4.62 MIL/uL (4.5-6.0)
[2020-04-11 15:32] LABS: CARBON DIOXIDE 22 mmol/L (21-32); CHLORIDE 120 mmol/L (98-107); CREATININE 4.5 mg/dL (0.6-1.3); GLUCOSE 90 mg/dL (74-106); MAGNESIUM 2.9 mg/dL (1.8-2.4); POTASSIUM 4.4 mmol/L (3.5-5.1)
[2020-04-11 15:37] LABS: WHITE BLOOD COUNT (AUTO) 46.7 K/uL (4.3-11.0)
[2020-04-11 15:43] LABS: CALCIUM, SERUM 7.1 mg/dL (8.5-10.1)
[2020-04-11 15:44] LABS: PHOSPHORUS 8.5 mg/dL (2.5-4.9); UREA NITROGEN, BLOOD 133 mg/dL (7-18)
[2020-04-11 15:51] LABS: SODIUM SERUM 158 mmol/L (136-145)
[2020-04-11 16:13] LABS: CREATINE KINASE, TOTAL 1027 U/L (39-308); FERRITIN 3324 ng/mL (8-388)
[2020-04-11 16:55] LABS: BAND % (MANUAL) 15 % (0.0-5.0); LYMPHOCYTES % (MANUAL) 7 % (16-48); MONOCYTES % (MANUAL) 2 % (0-11.0); NEUTROPHILS % (MANUAL) 76 (42-76)
[2020-04-11] MEDS ORDERED: APIXABAN 2.5 MG TABLET PO SCH (17:00)
[2020-04-11] MEDS ORDERED: DILTIAZEM HCL IV 125 MG in IV NS 0.9% 100 ML IV PRN (17:00)
[2020-04-11] MEDS ORDERED: PHENYLEPHRINE 50 MG in IV NS 0.9% 245 ML IV PRN (17:00)
[2020-04-11] MEDS ORDERED: NOREPINEPHRINE 32 MG in IV NS 0.9% 218 ML IV PRN (18:00)
--- NOTE | 2020-04-11 18:45 | NUR ---
FAMILY EXPRESSED WISHES FOR CHEMICAL CODE. NOTIFIED AND PLACED ORDER FOR CHEMICAL CODE.
--- NOTE | 2020-04-11 18:56 | NUR ---
CODE BLUE CALLED.
--- NOTE | 2020-04-11 18:58 | NUR ---
CODE CALLED. CHEMICAL CODE FOLLOWED PER FAMILY WISHES AND PER MD ORDERS. FAMILY AWARE. HOSPITALIST AWARE. NURSING COSTUME MAKER AWARE.
[2020-04-11] MEDS ORDERED: EPINEPHRINE (1:10,000) SYRINGE 1 MG/10 ML DISP.SYRIN ONE (19:08)
== END 2020-04-11 18:58 | disposition expired | DRG 720 ==
LOC: ER 11:57 → TRANSITION 14:50 → TELE2 04-02 17:08 → ICUOV 04-03 15:48 → ICU 04-11 10:01
PROVIDERS: ADMIT Internal Medicine
PROC: XW13325 Transfusion of Convalescent Plasma (Nonautologous) into Peripheral Vein, Percutaneous Approach, New Technology Group 5 (ICD-10-PCS; principal; 2020-03-30)
PROC: XW033E5 Introduction of Remdesivir Anti-infective into Peripheral Vein, Percutaneous Approach, New Technology Group 5 (ICD-10-PCS; 2020-03-30)
PROC: 05HY33Z Insertion of Infusion Device into Upper Vein, Percutaneous Approach (ICD-10-PCS; 2020-04-08)
PROC: 5A1935Z Respiratory Ventilation, Less than 24 Consecutive Hours (ICD-10-PCS; 2020-04-11)
PROC: 0BH17EZ Insertion of Endotracheal Airway into Trachea, Via Natural or Artificial Opening (ICD-10-PCS; 2020-04-11)
DX: A41.89 Other specified sepsis (principal); U07.1 COVID-19; J96.01 Acute respiratory failure with hypoxia; J12.89 Other viral pneumonia; N17.0 Acute kidney failure with tubular necrosis; G93.41 Metabolic encephalopathy; E43 Unspecified severe protein-calorie malnutrition; E11.9 Type 2 diabetes mellitus without complications; E11.65 Type 2 diabetes mellitus with hyperglycemia; J15.9 Unspecified bacterial pneumonia; I10 Essential (primary) hypertension; E87.0 Hyperosmolality and hypernatremia; E87.2 Acidosis; I48.91 Unspecified atrial fibrillation
CPT/HCPCS: 31720; 36410; 36415; 36600; 71045-TC; 74018; 80048-TC; 80053-TC; 80076-TC; 80202-TC; 81001; 82550-TC; 82553; 82570-TC; 82728-TC; 82803-TC; 82962-TC; 83605-TC; 83615-TC; 83735-TC; 83970; 84100-TC; 84155; 84155-TC; 84165; 84300-TC; 84484-TC; 85025-TC; 85378-TC; 85610-TC; 85730-TC; 86140-TC; 86480; 86850-TC; 87040-TC; 87081-TC; 87086-TC; 87899; 94002-TC; 94760-TC; 94799-TC; 99082-TC; A4216; A4217; A4349; G0378; J0171; J0330; J0360; J0456; J0696; J1100; J1650; J1815; J1940; J2060; J2185; J2248; J2270; J2370; J3262; J3370; J3490; J7030; J7050; J7060; J7070; P9017-BL; U0003